=== PATIENT | female | born 1995 ===

== ENCOUNTER 2020-07-15 20:08 | Emergency (ER) | payer MEDICAID, SELFPAY ==
--- NOTE | 2020-07-15 20:24 | ED.URI ---
HPI - URI/Sore Throat General Chief Complaint: General Medical Stated Complaint: Flu like symptoms Time Seen by Provider: 07/15/20 20:24 Source: patient Mode of arrival: ambulatory Limitations: no limitations History of Present Illness HPI Narrative: 25-year-old female with no significant past medical history presents with approximately 2 days of upper respiratory symptoms, cough, sore throat, subjective fevers and chills, and diarrhea. She presents for COVID-19 testing for her children and herself. MD elicited complaint: fever, cough, sore throat and nasal congestion Onset (ago): day(s) (2) Consistency: constant Severity: moderate Description of mucous: clear and watery Able to tolerate fluids by mouth: Yes Exacerbating factors: nothing Relieving factors: nothing Context: sick contacts Associated symptoms: fever and chills Treatments prior to arrival: none Related Data Allergies Allergy/AdvReac Type Severity Reaction Status Date / Time No Known Allergies Allergy Verified 07/15/20 20:43 Review of Systems Review of Systems: Constitutional: positive Fever, positive Chills, positive fatigue, positive Malaise ENT/Mouth: positive sore throat, positive runny nose Eyes: No Discharge Cardiovascular: No Chest Pain, No SOB Respiratory: No Cough, No Sputum, No Wheezing, No Smoke Exposure, No Dyspnea Gastrointestinal: No Nausea, No Vomiting, positive Diarrhea Genitourinary: no irregular bleeding, No Dysuria, No Urinary Frequency, No Hematuria, No Urinary Incontinence, No Urgency, No Flank Pain, Musculoskeletal: positive Myalgia Skin: No rash Neuro: No Headache Yes all other systems are reviewed and are negative PMFSH Past Medical History Attestation statement: The following information was validated with the patient. Source: old records reviewed Medical History (Updated 07/15/20 @ 20:44 by Susie Fischer) Patient denies medical problems Social History Social History Advance Directives: No Advance Directives Information Provided: No Physical Exam Vital Signs: Vital Signs: Last Vital Signs Temp 98.3 F 07/15/20 20:43 Pulse 89 07/15/20 20:43 Resp 18 07/15/20 20:43 BP 119/74 07/15/20 20:43 Pulse Ox 99 07/15/20 20:43 Body Mass Index 37.6 Appearance: Alert. Oriented X3. No acute distress. Eyes: Pupils equal, round and reactive to light. ENT: Pharynx normal. Neck: Normal inspection. Neck supple. CVS: Normal heart rate and rhythm. Pulses normal. Respiratory: No respiratory distress. Breath sounds normal. Abdomen: Soft and nontender. Skin: Skin warm and dry. Normal skin color. Normal skin turgor. Extremities: No lower extremity edema. Neuro: No motor deficit. No sensory deficit. Course Course Course Narrative: 25-year-old female with no significant past medical history presents with 2 days of upper respiratory symptoms consistent with COVID-19. She presents with her twin infants for testing. Patient will be discharged home and will be called with her results. Patient call back at 9:32 p.m. with positive COVID-19 testing results. MDM - URI/Sore Throat Differential Diagnosis Differential diagnosis: Likely upper respiratory infection, viral infection, bronchitis and influenza Medical Records Attestation: I reviewed the patient's medical records. Lab Data Attestation: I reviewed the patient's lab results. Labs: Lab Results 07/15/20 Range/Units 20:49 COVID-19 ([facility]) Positive A (Negative) COVID-19 Clin Com See Note Discharge Plan Discharge Clinical Impression: COVID-19 Patient Disposition: Home, Self-Care Instructions: Upper Respiratory Infection (ED), Viral Syndrome (ED), COVID-19 (Coronavirus Disease 2019) (ED) Additional Instructions: Se le evaluaron para detectar s?ntomas consistentes con la exposici?n positiva a COVID-19 o COVID-19. Por favor, mantenga el aislamiento social seg?n las directrices estatales y federales. Es stewart responsabilidad mantener estas directrices. Los resultados de las pruebas est?n pendientes. Le llamaremos con los resultados. Usted debe tratarse a s? mismo luis si fuera positivo hasta que los resultados de la prueba vuelvan. Shelley por elegir nazario departamento de emergencias para stewart evaluaci?n. Por favor, isamar un seguimiento con el m?dico de atenci?n primaria seg?n sea necesario. Regrese al servicio de emergencias para cualquier s?ntoma nuevo, preocupante o que empeore. You were evaluated for symptoms consistent with COVID-19 and or COVID-19 positive exposure. Please maintain social isolation per State and Federal guidelines. Is your responsibility to maintain these guidelines. Your test results are pending. We will call you with the results. You must treat yourself as if you are positive until your test results come back. Thank you for choosing this emergency department for evaluation. Please follow-up with primary care physician as needed. Return to the emergency department for any new, concerning, or worsening symptoms. Interventions: ED Discharge Assessment Last Done: 07/15/20 21:10 Discharge Date/Time: 07/15/20 21:11
[2020-07-15 20:43] VITALS: BP 119/74; PULSE 89; RESP 18; TEMP 36.8; O2SAT 99; BMI 37.6
[2020-07-15] MEDS: Acetaminophen 325 MG TABLET 650 MG PO (21:06)
[2020-07-15 21:09] LABS: COVID-19 Test Positive (Negative)
== END 2020-07-15 21:11 | disposition home or self-care (01) ==
PROVIDERS: Nurse Practitioner Family; Emergency Provider Internal Medicine
DX: U07.1 COVID-19 (principal)
CPT/HCPCS: 36415; 87635; 99283

== ENCOUNTER 2020-10-17 19:09 | Emergency (ER) | payer MEDICAID, SELFPAY ==
[2020-10-17 19:13] VITALS: BP 135/85; PULSE 102; RESP 18; TEMP 36.6; O2SAT 97; BMI 53.4
--- NOTE | 2020-10-17 20:33 | ED.NAVMDI ---
HPI - Nausea/Vomiting/Diarrhea General Chief complaint: Nausea/Vomiting/Diarrhea Stated complaint: vomiting Time Seen by Provider: 10/17/20 20:02 Source: patient Mode of arrival: ambulatory Limitations: no limitations History of Present Illness HPI Narrative: Patient with no significant past medical history been having diarrhea since last night with nausea diffuse cramping abdominal pain. Patient had 4 loose bowel movements since morning. Also her child is sick with vomiting denies any travel, no fever no chills nobody in the family has COVID Related Data Previous Rx's Medication Instructions Recorded ondansetron 4 mg disintegrating 4 mg PO Q6-8H PRN #12 tab 10/17/20 tablet Allergies Allergy/AdvReac Type Severity Reaction Status Date / Time No Known Allergies Allergy Verified 07/15/20 20:43 Review of Systems Review of Systems: Yes all other systems are reviewed and are negative PMFSH Past Medical History Medical History Patient denies medical problems Social History Social History Advance Directives: No Patient : No Physical Exam Vital Signs: Vital Signs: Last Vital Signs Temp 98.1 F 10/17/20 21:44 Pulse 91 10/17/20 21:44 Resp 18 10/17/20 21:44 BP 93/63 10/17/20 21:44 Pulse Ox 100 10/17/20 21:44 Body Mass Index 53.4 Appearance: Alert. Oriented X3. No acute distress. Eyes: No icterus no pallor ENT: Pharynx normal. Oral Mucosa moist Neck: Normal inspection. Neck supple. CVS: Normal heart rate and rhythm. Pulses normal. Respiratory: No respiratory distress. Equal air entry bilateral, no wheezing/rales/rhonchi Abdomen: Soft and nontender. Bowel sounds are present, no mass palpable, no CVA tenderness Skin: Skin warm and dry. Normal skin color. Normal skin turgor. Extremities: No lower MDM - Nausea/Vomiting/Diarrhea MDM Narrative Medical decision making narrative: Patient with nausea and diarrhea vomited 1 time in the ER started feeling much better after that patient was given Zofran sublingual COVID test was negative patient tolerating p.o. fluids after that will discharge patient home likely viral gastroenteritis Lab Data Labs: Lab Results 10/17/20 Range/Units 21:04 COVID-19 ([facility]) Negative (Negative) COVID-19 Clin Com See Note Discharge Plan Discharge Clinical Impression: Gastroenteritis Patient Disposition: Home, Self-Care Instructions: Gastroenteritis (ED) Additional Instructions: Drink plenty of fluids take medication for nausea/vomiting as prescribed Follow with PCP if not better Prescriptions: New ondansetron 4 mg tablet,disintegrating 4 mg PO Q6-8H PRN (Reason: Nausea And Vomiting) Qty: 12 RF: 0 Interventions: ED Discharge Assessment Last Done: 10/17/20 22:11 Discharge Date/Time: 10/17/20 22:12
[2020-10-17] MEDS: Dicyclomine HCl 10 MG CAPSULE 20 MG PO (21:01)
[2020-10-17] MEDS: Ondansetron ODT 4 MG TAB.RAPDIS TRANSLINGU (21:01)
[2020-10-17 21:31] LABS: COVID-19 Test Negative (Negative)
[2020-10-17 21:44] VITALS: BP 93/63; PULSE 91; RESP 18; TEMP 36.7; O2SAT 100
--- NOTE | 2020-10-17 22:07 | PC.NURSE ---
at arrival to room patient vomited over 500mls. soon after jenaro fell asleep. denies abd pain. others in household are vomiting.
--- NOTE | 2020-10-17 22:09 | PC.NURSE ---
taking po fluids w/o difficulty
== END 2020-10-17 22:12 | disposition home or self-care (01) ==
PROVIDERS: Emergency Provider Internal Medicine
DX: K52.9 Noninfective gastroenteritis and colitis, unspecified (principal); R11.2 Nausea with vomiting, unspecified; Z20.822 Contact with and (suspected) exposure to COVID-19; Z79.899 Other long term (current) drug therapy
CPT/HCPCS: 36415; 87635; 99283

== ENCOUNTER → 2021-02-05 10:09 | Outpatient (BNVA) | payer MEDICAID, SELFPAY | PROVIDERS: PCP General Practice; Referring Provider General Practice; Visit Provider Physician Assistant | DX: Z01.818 Encounter for other preprocedural examination (principal); E66.01 Morbid (severe) obesity due to excess calories; Z68.43 Body mass index [BMI] 50.0-59.9, adult | CPT/HCPCS: 99202 ==

== ENCOUNTER 2021-02-06 16:07 | Outpatient (REF) | payer MEDICAID, SELFPAY ==
[2021-02-07 10:34] LABS: H Pylori Breath Test Negative (Negative)
== END 2021-02-06 16:08 | disposition home or self-care (01) ==
LOC: HO.LNP 16:07
PROVIDERS: Visit Provider Physician Assistant
DX: E66.01 Morbid (severe) obesity due to excess calories (principal)
CPT/HCPCS: 83013

== ENCOUNTER 2021-07-14 15:14 | Emergency (ER) | payer MEDICAID, SELFPAY ==
[2021-07-14 15:20] VITALS: BP 124/84
[2021-07-14 15:22] VITALS: BP 119/79; PULSE 88; RESP 18; TEMP 36.8; O2SAT 96; BMI 52.4
--- NOTE | 2021-07-14 18:09 | ED.NAVMDI ---
HPI - Nausea/Vomiting/Diarrhea General Chief complaint: Nausea/Vomiting/Diarrhea Stated complaint: N/V/D SINCE THIS AM,LOW BP FROM CLINIC PER EMS Time Seen by Provider: 07/14/21 18:09 Source: patient Mode of arrival: ambulatory Limitations: no limitations History of Present Illness HPI Narrative: Patient with multiple complaints for last 3 weeks complains of body aches , cough for last 2 days complaining nausea vomiting and diarrhea omitted to 3 times a day no fever no chills patient does have diffuse abdominal cramping no vaginal discharge Related Data Previous Rx's Medication Instructions Recorded ondansetron 4 mg disintegrating 4 mg PO Q6-8H PRN #12 tab 10/17/20 tablet ondansetron 4 mg disintegrating 4 mg PO Q6-8H PRN #7 tab 07/14/21 tablet Allergies Allergy/AdvReac Type Severity Reaction Status Date / Time No Known Allergies Allergy Verified 07/14/21 15:22 Review of Systems Review of Systems: Yes all other systems are reviewed and are negative PMFSH Past Medical History Medical History Patient denies medical problems Surgical History Hx of section Family History Family History Mother Anxiety Depression Father No problems noted. Brother No problems noted. Brother No problems noted. Brother Schizo affective schizophrenia Daughter No problems noted. Son No problems noted. Social History Social History Alcohol intake: never Patient Tobacco Use Status: Never used Tobacco Advance Directives: No Advance Directives Information Provided: No Patient : No Physical Exam Vital Signs: Vital Signs: Last Vital Signs Temp 98.3 F 07/14/21 21:06 Pulse 58 07/14/21 21:06 Resp 18 07/14/21 15:22 BP 146/66 H 07/14/21 21:06 Pulse Ox 97 07/14/21 21:06 BMI result Body Mass Index 52.4 Appearance: Alert. Oriented X3. No acute distress. Eyes: No pallor or icterus ENT: Pharynx normal. Oral Mucosa moist Neck: Normal inspection. Neck supple. CVS: Normal heart rate and rhythm. Pulses normal. Respiratory: No respiratory distress. Equal air entry bilateral, no wheezing/rales/rhonchi Abdomen: Soft and nontender. Bowel sounds are present, no mass palpable, no CVA tenderness Skin: Skin warm and dry. Normal skin color. Normal skin turgor. Extremities: No lower extremity edema. No calf tenderness Neuro: Oriented X 3. MDM - Nausea/Vomiting/Diarrhea MDM Narrative Medical decision making narrative: Patient is obese with nonspecific complaints with nausea vomiting diarrhea likely viral influenza and COVID negative patient feeling much better after treatment discharge her home Lab Data Attestation: I reviewed the patient's lab results. Result diagrams: 07/14/21 18:56 07/14/21 18:56 Labs: Lab Results 07/14/21 07/14/21 07/14/21 Range/Units 18:56 18:56 19:05 WBC 10.6 (4.8-10.8) X10*3/uL RBC 4.44 (4.20-5.50) X10*6/uL Hgb 12.4 (12.0-16.0) g/dl Hct 38.2 (37.0-47.0) % MCV 86.0 (80.0-98.0) fL MCH 27.9 (27.0-33.0) pg MCHC 32.5 (31.0-35.0) g/dl RDW 14.2 (11.0-16.0) % Plt Count 347 (160-400) X10*3/uL MPV 10.4 (9.4-12.3) fL Immature Gran % (Auto) 0.3 (0.0-0.4) % Neut % (Auto) 76.4 H (45-73) % Lymph % (Auto) 16.1 L (20-40) % Valley % (Auto) 5.6 (2-11) % Eos % (Auto) 1.4 (0-4) % Baso % (Auto) 0.2 (0-2) % Lymph # (Auto) 1.7 (1.2-4.9) X10*3/uL Valley # (Auto) 0.6 (0.1-1.2) X10*3/uL Eos # (Auto) 0.2 (0.0-0.4) X10*3/uL Baso # (Auto) 0.0 (0.0-0.2) X10*3/uL Abs Immat Gran (auto) 0.03 (0.00-0.03) X10*3/uL Absolute Neuts (auto) 8.1 (2.0-8.3) x10*3/uL Absolute Nucleated RBC 0.000 (0.0-0.012) X10*3/uL Nucleated RBC % (auto) 0.0 (0.0-0.2) /100WBC Sodium 137 (135-145) mmol/L Potassium 4.3 (3.3-5.1) mmol/L Chloride 103 (96-108) mmol/L Carbon Dioxide 28 (22-29) mmol/L Anion Gap 10 L (12-20) BUN 6 L (9-16) mg/dL Creatinine 0.86 (0.5-1.4) mg/dL Estim Creat Clear Calc 128.5 Estimated GFR > 60 Random Glucose 90 (60-115) mg/dL Calcium 8.8 (8.4-10.2) mg/dL Total Bilirubin 0.5 (0.0-1.0) mg/dL AST 22 (5-31) U/L ALT 32 H (0-31) U/L Alkaline Phosphatase 168 H (39-117) U/L Total Protein 7.0 (6.5-8.0) g/dL Albumin 3.7 (3.5-5.0) g/dL Lipase 18 (8-78) U/L COVID-19 ([facility]) Negative (Negative) COVID-19 Clin Com See Note Influenza Type A ([facility]) (Negative) Influenza Type B ([facility]) (Negative) Influenza A & B Note 07/14/21 Range/Units 20:41 WBC (4.8-10.8) X10*3/uL RBC (4.20-5.50) X10*6/uL Hgb (12.0-16.0) g/dl Hct (37.0-47.0) % MCV (80.0-98.0) fL MCH (27.0-33.0) pg MCHC (31.0-35.0) g/dl RDW (11.0-16.0) % Plt Count (160-400) X10*3/uL MPV (9.4-12.3) fL Immature Gran % (Auto) (0.0-0.4) % Neut % (Auto) (45-73) % Lymph % (Auto) (20-40) % Valley % (Auto) (2-11) % Eos % (Auto) (0-4) % Baso % (Auto) (0-2) % Lymph # (Auto) (1.2-4.9) X10*3/uL Valley # (Auto) (0.1-1.2) X10*3/uL Eos # (Auto) (0.0-0.4) X10*3/uL Baso # (Auto) (0.0-0.2) X10*3/uL Abs Immat Gran (auto) (0.00-0.03) X10*3/uL Absolute Neuts (auto) (2.0-8.3) x10*3/uL Absolute Nucleated RBC (0.0-0.012) X10*3/uL Nucleated RBC % (auto) (0.0-0.2) /100WBC Sodium (135-145) mmol/L Potassium (3.3-5.1) mmol/L Chloride (96-108) mmol/L Carbon Dioxide (22-29) mmol/L Anion Gap (12-20) BUN (9-16) mg/dL Creatinine (0.5-1.4) mg/dL Estim Creat Clear Calc Estimated GFR Random Glucose (60-115) mg/dL Calcium (8.4-10.2) mg/dL Total Bilirubin (0.0-1.0) mg/dL AST (5-31) U/L ALT (0-31) U/L Alkaline Phosphatase (39-117) U/L Total Protein (6.5-8.0) g/dL Albumin (3.5-5.0) g/dL Lipase (8-78) U/L COVID-19 ([facility]) (Negative) COVID-19 Clin Com Influenza Type A ([facility]) Negative (Negative) Influenza Type B ([facility]) Negative (Negative) Influenza A & B Note See Note Discharge Plan Discharge Clinical Impression: Gastroenteritis Patient Disposition: Home, Self-Care Instructions: Gastroenteritis (ED) Additional Instructions: Drink plenty of fluids Medicine for nausea as advised Follow with PCP Prescriptions: New ondansetron 4 mg tablet,disintegrating 4 mg PO Q6-8H PRN (Reason: nausea and vomiting) Qty: 7 0RF No Action ondansetron 4 mg tablet,disintegrating 4 mg PO Q6-8H PRN (Reason: Nausea And Vomiting) Qty: 12 0RF Interventions: ED Discharge Assessment Last Done: 07/14/21 21:32 Discharge Date/Time: 07/14/21 21:40
[2021-07-14 18:28] VITALS: BP 111/58; PULSE 85; TEMP 36.8; O2SAT 97
[2021-07-14] MEDS: 0.9 % Sodium Chloride 1,000 ML 999 ML IV (18:57)
[2021-07-14 18:59] LABS: MANUAL DIFF FLAG NO
[2021-07-14 19:09] LABS: Basophils Percent Auto 0.2 % (0-2); Eosinophils Absolute Auto 0.2 X10*3/uL (0.0-0.4); Eosinophils Percent Auto 1.4 % (0-4); Hematocrit 38.2 % (37.0-47.0); Hemoglobin 12.4 g/dl (12.0-16.0); Imm Gran Abs Auto 0.03 X10*3/uL (0.00-0.03); Imm Gran Pct Auto 0.3 % (0.0-0.4); Lymphocytes Absolute Auto 1.7 X10*3/uL (1.2-4.9); Lymphocytes Percent Auto 16.1 % (20-40); Mean Corpuscular HGB Conc 32.5 g/dl (31.0-35.0); Mean Corpuscular Hemoglobin 27.9 pg (27.0-33.0); Mean Platelet Volume 10.4 fL (9.4-12.3); Monocytes Absolute Auto 0.6 X10*3/uL (0.1-1.2); Monocytes Percent Auto 5.6 % (2-11); Neutrophils Absolute Auto 8.1 x10*3/uL (2.0-8.3); Neutrophils Percent Auto 76.4 % (45-73); Platelet Count 347 X10*3/uL (160-400); Red Blood Count 4.44 X10*6/uL (4.20-5.50); Red Cell Distribution Width 14.2 % (11.0-16.0); White Blood Count 10.6 X10*3/uL (4.8-10.8)
[2021-07-14 19:15] LABS: Alanine Aminotransferase 32 U/L (0-31); Albumin Level 3.7 g/dL (3.5-5.0); Alkaline Phosphatase 168 U/L (39-117); Anion Gap 10 (12-20); Aspartate Amino Transferase 22 U/L (5-31); Bilirubin Total 0.5 mg/dL (0.0-1.0); Blood Urea Nitrogen 6 mg/dL (9-16); Calcium 8.8 mg/dL (8.4-10.2); Carbon Dioxide 28 mmol/L (22-29); Chloride 103 mmol/L (96-108); Creatinine Clr Calc Pharmacy 128.5; Estimated Glomerular Filt Rate > 60; Glucose Random 90 mg/dL (60-115); Lipase 18 U/L (8-78); Potassium 4.3 mmol/L (3.3-5.1); Sodium 137 mmol/L (135-145)
[2021-07-14 19:33] LABS: COVID-19 Test Negative (Negative); IDNOW Serial# 16C4AD1C
[2021-07-14] MEDS: Ketorolac Tromethamine 30 MG/ML VIAL IVPUSH (20:20)
[2021-07-14 21:01] VITALS: BP 131/70; PULSE 80; TEMP 36.8; O2SAT 97
[2021-07-14 21:03] LABS: Influenza A Negative (Negative); Influenza B2 Negative (Negative)
[2021-07-14 21:06] VITALS: BP 146/66; PULSE 58; TEMP 36.8; O2SAT 97
== END 2021-07-14 21:40 | disposition home or self-care (01) ==
PROVIDERS: Emergency Provider Internal Medicine
DX: K52.9 Noninfective gastroenteritis and colitis, unspecified (principal); R11.2 Nausea with vomiting, unspecified; M79.10 Myalgia, unspecified site; R05.9 Cough, unspecified; Z20.822 Contact with and (suspected) exposure to COVID-19; Z79.899 Other long term (current) drug therapy
CPT/HCPCS: 80053; 83690; 85025; 87502; 87635; 96361; 96374; 99284; J1885

== ENCOUNTER 2022-07-18 18:06 | Emergency (ER) | payer MEDICAID, SELFPAY ==
[2022-07-18 18:12] VITALS: BP 123/77; PULSE 93; RESP 18; TEMP 36.8; O2SAT 98; BMI 49.7
--- NOTE | 2022-07-18 18:13 | ED_ITS ---
HPI - General Adult General Chief complaint: General Medical <DANGELO Riddle - Last Filed: 07/19/22 09:46> Stated complaint: , no baby movement, coughing <DANGELO Riddle - Last Filed: 07/19/22 09:46> Time Seen by Provider: 07/18/22 18:59 <DANGELO Riddle - Last Filed: 07/19/22 09:46> Related Data Home medications: Previous Rx's Medication Instructions Recorded ondansetron 4 mg disintegrating 4 mg PO Q6-8H PRN Nausea And 10/17/20 tablet Vomiting #12 tabs ondansetron 4 mg disintegrating 4 mg PO Q6-8H PRN nausea and 07/14/21 tablet vomiting #7 tabs amoxicillin 500 mg tablet 500 mg PO BID #14 tabs 07/18/22 <DANGELO Riddle - Last Filed: 07/19/22 09:46> Allergies/adverse reactions: Allergies Allergy/AdvReac Type Severity Reaction Status Date / Time No Known Allergies Allergy Verified 07/14/21 15:22 <DANGELO Riddle - Last Filed: 07/19/22 09:46> [facility] Past Medical History Medical History: Medical History Patient denies medical problems <DANGELO Riddle - Last Filed: 07/19/22 09:46> Surgical History: Surgical History Hx of section <DANGELO Riddle - Last Filed: 07/19/22 09:46> Family History Family History: Family History Mother Anxiety Depression Father No problems noted. Brother No problems noted. Brother No problems noted. Brother Schizo affective schizophrenia Daughter No problems noted. Son No problems noted. <DANGELO Riddle - Last Filed: 07/19/22 09:46> Social History Social History: Social History Alcohol intake: never Patient Tobacco Use Status: Never used Tobacco Smoked in Last 30 Days: No Use of substances other than those prescribed or required for medical reasons: No Advance Directives: No Advance Directives Information Provided: Yes Patient : Yes <DANGELO Riddle - Last Filed: 07/19/22 09:46> Physical Exam ED Vital Signs: Vital Signs - 24 hr 07/18/22 18:12 07/18/22 18:59 Temperature 98.3 F Pulse Rate 93 71 Respiratory Rate 18 Blood Pressure 123/77 112/64 Pulse Oximetry 98 Oxygen Delivery Method Room Air BMI result Body Mass Index 49.7 <DANGELO Riddle - Last Filed: 07/19/22 09:46> Vital Signs - 24 hr 07/18/22 18:12 07/18/22 18:59 Temperature 98.3 F Pulse Rate 93 71 Respiratory Rate 18 Blood Pressure 123/77 112/64 Pulse Oximetry 98 Oxygen Delivery Method Room Air BMI result Body Mass Index 49.7 <RUSH Hull-BC - Last Filed: 07/18/22 19:44> Course Course Course Narrative: This is a [id number]-[id number]-female, who is 32 weeks , who presents to the emergency department with complaints of cough, sore throat, fevers, and decreased movement. Denies any suprapubic pain, vaginal bleeding or discharge. She is followed by Kana Brewsters, did not call as she has been busy with her daughter who is also sick with URI sxs and is also being seen here at the ER today. VSS. Plan: Viral swab, strep test ordered. <DANGELO Riddle - Last Filed: 07/19/22 09:46> Reevaluation(s) Reevaluation #1: FHR 141, bedside ultrasound done, baby movement seen heart rate measured and seen. Patient does not have any vaginal discharge, no abdominal pain or discomfort, no cramping. Patient will be sent home on antibiotics for strep. Negative flu or COVID. Patient is hemodynamically stable, vital signs stable. Patient will call Kana jimenez [facility] on Wednesday. Patient was encouraged to return if she will have any vaginal discharge. <RUSH Hull-BC - Last Filed: 07/18/22 19:44> Medications Administered Discontinued Medications Generic Name Dose Route Start Last Admin Trade Name Freq PRN Reason Stop Dose Admin Amoxicillin 500 mg 07/18/22 19:45 07/18/22 19:59 Amoxicillin 500 Mg Capsule PO 07/18/22 19:46 500 mg ONCE ONE Administration <DANGELO Riddle - Last Filed: 07/19/22 09:46> Medications Administered Discontinued Medications Generic Name Dose Route Start Last Admin Trade Name Jose PRN Reason Stop Dose Admin Amoxicillin 500 mg 07/18/22 19:45 07/18/22 19:59 Amoxicillin 500 Mg Capsule PO 07/18/22 19:46 500 mg ONCE ONE Administration <RUSH Hull-RAGHAVENDRA - Last Filed: 07/18/22 19:44> Medical Decision Making Medical Decision Making MDM Narrative: Triage note This is a 8-[id number]-female, who is 32 weeks , who presents to the emergency department with complaints of cough, sore throat, fevers, and decreased movement. Denies any suprapubic pain, vaginal bleeding or discharge. She is followed by Kana Brewsters, did not call as she has been busy with her daughter who is also sick with URI sxs and is also being seen here at the ER today. VSS. Plan: Viral swab, strep test ordered. FHR 141, bedside ultrasound done, baby movement seen heart rate measured and seen. Patient does not have any vaginal discharge, no abdominal pain or discomfort, no cramping. Patient will be sent home on antibiotics for strep. Negative flu or COVID. Patient is hemodynamically stable, vital signs stable. Patient will call Kana jimenez [facility] on Wednesday. Patient was encouraged to return if she will have any vaginal discharge. <RUSH Hull-RAGHAVENDRA - Last Filed: 07/18/22 19:44> Lab Data Labs: Lab Results 07/18/22 07/18/22 Range/Units 18:26 18:42 Influenza Type A (PCR) NEGATIVE (Negative) Influenza Type B (PCR) NEGATIVE (Negative) RSV RNA Qual (PCR) NEGATIVE (Negative) SARS-CoV-2 RNA (RT-PCR) NEGATIVE (Negative) S. pyogenes GrpA KUNAL Positive A (Negative) <DANGELO Riddle - Last Filed: 07/19/22 09:46> Lab Results 07/18/22 07/18/22 Range/Units 18:26 18:42 Influenza Type A (PCR) NEGATIVE (Negative) Influenza Type B (PCR) NEGATIVE (Negative) RSV RNA Qual (PCR) NEGATIVE (Negative) SARS-CoV-2 RNA (RT-PCR) NEGATIVE (Negative) S. pyogenes GrpA KUNAL Positive A (Negative) <Berenice Billings BRUSH WASHER-BC - Last Filed: 07/18/22 19:44> Discharge Plan Discharge Clinical Impression: Strep throat, <DANGELO Riddle - Last Filed: 07/19/22 09:46> Patient Disposition: Home, Self-Care <DANGELO Riddle - Last Filed: 07/19/22 09:46> Instructions: (ED), Strep Throat (ED) <DANGELO Riddle - Last Filed: 07/19/22 09:46> Additional Instructions: You were seen here today for cold-like symptoms, sore throat. You reported that you did not feel your baby move much today. You have strep throat and you received 1st dose of antibiotics in the ER. Please make sure you finish all of the antibiotics. Bedside ultrasound was performed and your baby has been moving and has strong heart rate. If you were have symptoms of abdominal cramping, discomfort or if you have any vaginal discharge please make sure to return to emergency department. Please follow-up with your OBGYN provider next week <DANGELO Riddle - Last Filed: 07/19/22 09:46> Prescriptions: New amoxicillin 500 mg tablet 500 mg PO BID Qty: 14 0RF No Action ondansetron 4 mg tablet,disintegrating 4 mg PO Q6-8H PRN (Reason: Nausea And Vomiting) Qty: 12 0RF ondansetron 4 mg tablet,disintegrating 4 mg PO Q6-8H PRN (Reason: nausea and vomiting) Qty: 7 0RF <DANGELO Riddle - Last Filed: 07/19/22 09:46> Interventions: ED Discharge Assessment Last Done: 07/18/22 20:20 <DANGELO Riddle Last Filed: 07/19/22 09:46> Discharge Date/Time: 07/18/22 20:15 <DANGELO Riddle Last Filed: 07/19/22 09:46>
[2022-07-18 18:59] VITALS: BP 112/64; PULSE 71
[2022-07-18 19:02] LABS: IDNOW Serial# 08D9AD1C; Strep A Nucleic Acid Positive (Negative)
--- NOTE | 2022-07-18 19:17 | PC.NURSE ---
assumed care of pt no apparent distress aox4 resting quietly young daughter at bedside
[2022-07-18 19:25] LABS: Influenza A PCR NEGATIVE (Negative); Influenza B PCR NEGATIVE (Negative); Resp Syncy Virus RNA Qual PCR NEGATIVE (Negative); SARS COV2 PCR INHOUSE NEGATIVE (Negative)
--- NOTE | 2022-07-18 19:34 | PC.NURSE ---
ultrasound done by providers movemet noted FHR 149
[2022-07-18] MEDS: Amoxicillin 500 MG CAPSULE PO (19:59)
--- NOTE | 2022-07-18 20:20 | PC.NURSE ---
Discharge instructions given and explained to pt no apparent distress aox4 ambulates safely/independently
== END 2022-07-18 20:15 | disposition home or self-care (01) ==
PROVIDERS: Physician Assistant Medical; Emergency Provider Internal Medicine
DX: O99.513 Diseases of the respiratory system complicating pregnancy, third trimester (principal); J02.0 Streptococcal pharyngitis; Z3A.32 32 weeks gestation of pregnancy
CPT/HCPCS: 0241U; 87651; 99284

== ENCOUNTER 2022-07-28 01:39 | Emergency (ER) | payer MEDICAID, SELFPAY ==
[2022-07-28 01:42] VITALS: BP 111/69; PULSE 84; RESP 18; TEMP 36.6; O2SAT 98; BMI 27.4
== END 2022-07-28 03:54 | disposition left against medical advice (07) ==
PROVIDERS: Emergency Provider Emergency Medicine; PCP Registered Nurse
DX: O21.2 Late vomiting of pregnancy (principal); H11.31 Conjunctival hemorrhage, right eye; Z3A.34 34 weeks gestation of pregnancy
CPT/HCPCS: 99282

== ENCOUNTER 2022-12-08 09:40 | Emergency (ER) | payer MEDICAID, SELFPAY ==
[2022-12-08 09:56] VITALS: BP 115/68; PULSE 76; RESP 18; TEMP 37.3; O2SAT 98; BMI 48.5
[2022-12-08 10:31] LABS: MANUAL DIFF FLAG NO
[2022-12-08 10:33] LABS: Basophils Percent Auto 0.3 % (0-2); Eosinophils Absolute Auto 0.1 X10*3/uL (0.0-0.4); Eosinophils Percent Auto 1.4 % (0-4); Hematocrit 35.1 % (37.0-47.0); Hemoglobin 11.6 g/dl (12.0-16.0); Imm Gran Abs Auto 0.03 X10*3/uL (0.00-0.03); Imm Gran Pct Auto 0.3 % (0.0-0.4); Lymphocytes Absolute Auto 1.8 X10*3/uL (1.2-4.9); Lymphocytes Percent Auto 19.4 % (20-40); Mean Corpuscular Hemoglobin 28.6 pg (27.0-33.0); Mean Corpuscular Volume 86.7 fL (80.0-98.0); Mean Platelet Volume 10.8 fL (9.4-12.3); Monocytes Absolute Auto 0.7 X10*3/uL (0.1-1.2); Monocytes Percent Auto 7.7 % (2-11); Neutrophils Absolute Auto 6.5 x10*3/uL (2.0-8.3); Neutrophils Percent Auto 70.9 % (45-73); Platelet Count 311 X10*3/uL (160-400); Red Blood Count 4.05 X10*6/uL (4.20-5.50); Red Cell Distribution Width 13.3 % (11.0-16.0); White Blood Count 9.2 X10*3/uL (4.8-10.8)
[2022-12-08 10:48] LABS: Anion Gap 9 (12-20); Blood Urea Nitrogen 9 mg/dL (9-16); Calcium 9.1 mg/dL (8.4-10.2); Carbon Dioxide 24 mmol/L (22-29); Chloride 110 mmol/L (96-108); Creatinine Clr Calc Pharmacy 125.6; Estimated Glomerular Filt Rate > 60; Glucose Random 118 mg/dL (60-115); Potassium 4.5 mmol/L (3.3-5.1); Sodium 138 mmol/L (135-145)
--- NOTE | 2022-12-08 13:07 | ED.GENADULT ---
HPI - General Adult General Chief complaint: General Medical Stated complaint: Diarrhea Vertigo Time Seen by Provider: 12/08/22 13:01 Source: patient, RN notes reviewed and old records reviewed Mode of arrival: ambulatory History of Present Illness HPI narrative: 27-year-old female with past medical history of obesity presenting to the ED complaining of headache, fatigue, nasal congestion/rhinorrhea, sore throat, myalgias, and watery nonbloody diarrhea x6 episodes daily x 3 days. denies fever/chills, ear pain, recent travel, suspicious food intake, sick contacts, abdominal pain, nausea/ vomiting, melena, dysuria/ hematuria, flank pain Onset (ago): day(s) Related Data Previous Rx's Medication Instructions Recorded ondansetron 4 mg disintegrating 4 mg PO Q6-8H PRN Nausea And 10/17/20 tablet Vomiting #12 tabs ondansetron 4 mg disintegrating 4 mg PO Q6-8H PRN nausea and 07/14/21 tablet vomiting #7 tabs amoxicillin 500 mg tablet 500 mg PO BID #14 tabs 07/18/22 Allergies Allergy/AdvReac Type Severity Reaction Status Date / Time No Known Allergies Allergy Verified 07/14/21 15:22 Review of Systems Review of Systems: Constitutional: No Fever, No Chills, + Fatigue, + Malaise ENT/Mouth: No Hearing loss, No Ear Pain, +Nasal Congestion, No Sinus Pain, No Hoarseness, +sore throat, + Rhinorrhea, No Swallowing Difficulty Eyes: No Eye Pain, No Swelling, No Redness Cardiovascular: No Chest Pain, No SOB, No Edema, No Palpitations Respiratory: No Cough, No Sputum,No Dyspnea Gastrointestinal: No Nausea, No Vomiting, +Diarrhea, No Constipation, No Abdominal pain Genitourinary: No Dysuria, No Urinary Frequency, No Hematuria, No Flank Pain, No Urinary Flow Changes Musculoskeletal: No joint pain, No Myalgias, No Joint Swelling Skin: No Skin Lesions, No rash Neuro: +Gen Weakness, No Dizziness, +Headache Yes all other systems are reviewed and are negative Constitutional: Constitutional: Reports as per [facility] Past Medical History Attestation statement: The following information was validated with the patient. Source: old records reviewed Medical History Patient denies medical problems Surgical History Hx of section Family History Family History Mother Anxiety Depression Father No problems noted. Brother No problems noted. Brother No problems noted. Brother Schizo affective schizophrenia Daughter No problems noted. Son No problems noted. Social History Social History Alcohol intake: never Patient Tobacco Use Status: Never used Tobacco Advance Directives: No Advance Directives Information Provided: No Physical Exam ED Vital Signs: Vital Signs - 24 hr 12/08/22 09:56 Temperature 99.2 F Pulse Rate 76 Respiratory Rate 18 Blood Pressure 115/68 Pulse Oximetry 98 Oxygen Delivery Method Room Air BMI result Body Mass Index 48.5 Const General: cooperative, healthy appearing and no acute distress Orientation/consciousness: patient oriented x3 Limitations: no limitations HENMT Head: Yes normal to inspection and Yes atraumatic Ears: hearing grossly normal bilaterally, external ears normal, TM's normal bilaterally and mastoids normal General nose exam: Normal external nose present Face and sinus: Yes normal facial exam Mouth: Normal oral and palatal mucosa present Throat: Yes posterior oropharynx normal, Yes tonsils normal, Yes uvula midline, No peritonsillar mass, No uvula laterally displaced and No uvular edema Eyes General: appearance normal, both eyes and all related structures EOM: EOMs intact bilaterally Neck Neck: Yes normal visual inspection and Yes no meningeal signs Resp Effort & Inspection: normal respiratory effort and no respiratory distress Auscultation: clear to auscultation bilaterally and no wheezes Cardio Rate: regular rate Heart sounds: S1 normal heart sound present and S2 normal heart sound present GI Inspection: Yes normal to inspection Palpation (GI): Soft to palpation, nontender, no guarding and not rigid General: Yes no CVA tenderness Back/Spine/Pelvis Back: no CVA tenderness Skin Rashes: no rashes Wounds: no wounds Neuro General: patient oriented x3, tone normal and no meningeal signs Cranial nerves: Yes CN's II-XII intact bilaterally Gait exam (Neuro): Normal gait present Extrem General: Yes normal to inspection Course Course Course Narrative: -1408-- labs unremarkable/reassuring. UA contaminated > will wait on culture prior to initiating antibiotics. negative - COVID-19 and rapid strep negative Results discussed with patient including worrisome signs and symptoms and strict return precautions, and when to return to the emergency department. They verbalized understanding and feel safe for discharge at this time. Medical Decision Making Medical Decision Making [facility] Narrative: 27-year-old female with past medical history of obesity presenting to the ED complaining of headache, fatigue, nasal congestion/rhinorrhea, sore throat, myalgias, and watery nonbloody diarrhea x6 episodes daily x 3 days. On exam VSS, NAD, nontoxic, abdomen soft nontender, no CVAT, lungs CTA. Concern for viral illness vs gastroenteritis vs dehydration/metabolic vs pharyngitis. C.Diff On differential however lower. Unlikely appendicitis/ diverticulitis/colitis or SENIOR LINUX SYSTEMS ADMINISTRATOR/retropharyngeal abscess. Plan: Labs, UA, COVID-19 testing, rapid strep, p.o. challenge. Discussed stool studies however patient states she will not be able to provide sample Please refer to course for remaining clinical decision making, interpretation of labs/imaging results, and discussions with consultants and/or family members. Differential Diagnosis Differential Diagnoses: The differential diagnosis associated with the presentation includes As above Admission/Observation Consideration of admission/observation: Escalation of care including admission/observation considered Lab Data [facility] Lab Attestation statement: I reviewed the patient's lab results. 12/08/22 10:28 12/08/22 10:28 Labs: Lab Results 12/08/22 12/08/22 Range/Units 10:28 13:20 WBC 9.2 (4.8-10.8) X10*3/uL RBC 4.05 L (4.20-5.50) X10*6/uL Hgb 11.6 L (12.0-16.0) g/dl Hct 35.1 L (37.0-47.0) % MCV 86.7 (80.0-98.0) fL MCH 28.6 (27.0-33.0) pg MCHC 33.0 (31.0-35.0) g/dl RDW 13.3 (11.0-16.0) % Plt Count 311 (160-400) X10*3/uL MPV 10.8 (9.4-12.3) fL Immature Gran % (Auto) 0.3 (0.0-0.4) % Neut % (Auto) 70.9 (45-73) % Lymph % (Auto) 19.4 L (20-40) % Dougherty % (Auto) 7.7 (2-11) % Eos % (Auto) 1.4 (0-4) % Baso % (Auto) 0.3 (0-2) % Lymph # (Auto) 1.8 (1.2-4.9) X10*3/uL Dougherty # (Auto) 0.7 (0.1-1.2) X10*3/uL Eos # (Auto) 0.1 (0.0-0.4) X10*3/uL Baso # (Auto) 0.0 (0.0-0.2) X10*3/uL Abs Immat Gran (auto) 0.03 (0.00-0.03) X10*3/uL Absolute Neuts (auto) 6.5 (2.0-8.3) x10*3/uL Absolute Nucleated RBC 0.000 (0.0-0.012) X10*3/uL Nucleated RBC % (auto) 0.0 (0.0-0.2) /100WBC Sodium 138 (135-145) mmol/L Potassium 4.5 (3.3-5.1) mmol/L Chloride 110 H (96-108) mmol/L Carbon Dioxide 24 (22-29) mmol/L Anion Gap 9 L (12-20) BUN 9 (9-16) mg/dL Creatinine 0.83 (0.5-1.4) mg/dL Estim Creat Clear Calc 125.6 Estimated GFR > 60 Random Glucose 118 H (60-115) mg/dL Calcium 9.1 (8.4-10.2) mg/dL Magnesium 1.8 (1.6-2.6) mg/dL Total Bilirubin 0.2 (0.0-1.0) mg/dL Direct Bilirubin < 0.2 (0.0-0.5) mg/dL AST 14 (5-31) U/L ALT 14 (0-31) U/L Alkaline Phosphatase 164 H (39-117) U/L Total Protein 7.1 (6.5-8.0) g/dL Albumin 3.8 (3.5-5.0) g/dL Lipase 27 (8-78) U/L Urine Color Yellow Urine Appearance Cloudy Urine pH 6.5 (5.0-9.0) Ur Specific [place] 1.020 (1.005-1.025) Urine Protein Negative (Neg-Trace) mg/dL Urine Glucose (UA) Negative (Negative) mg/dL Urine Ketones Negative (Negative) mg/dL Urine Blood Negative (Negative) Urine Nitrite Negative (Negative) Ur Leukocyte Esterase Moderate (2+) H (Negative) Urine RBC 0-2 (0-2) /HPF Urine WBC 11-20 H (0-5) /HPF Ur Squamous Epith Cells >20 (0-2) /HPF Urine Bacteria Trace (None Seen) Hyaline Casts 0-2 (0-2) /LPF Urine Test NEGATIVE (NEGATIVE) COVID-19 (ANTONINO) Negative (Negative) COVID-19 Clin Com See Note S. pyogenes GrpA KUNAL Negative (Negative) Radiology Impression Discussion of test interpretation with radiology: I have reviewed the radiologist's reading. External Record Review External record reviewed: Inpatient record, Office record, Outpatient record, Prior outpatient labs, Prior outpatient radiology, Primary care record and Outside ED record Tests considered The following testing was considered but not selected: As above Prescription Management I considered prescription management with: Pain Medication, Antiviral and Antibiotic Discharge Plan Discharge Clinical Impression: Upper respiratory infection, Diarrhea Patient Disposition: Home, Self-Care Instructions: Upper Respiratory Infection (DC), Acute Diarrhea (ED) Additional Instructions: you likely have a virus Your urine is contaminated, we will wait for the culture, if this is positive we will call you Please close follow-up with her doctor. If he can provide a stool sample for doctor to send for studies this would be helpful Make sure your in taking plenty of fluids Rest If symptoms persist or worsen you develop blood in her stool, black stool, you are unable to eat or drink return to the ED Prescriptions: No Action ondansetron 4 mg tablet,disintegrating 4 mg PO Q6-8H PRN (Reason: Nausea And Vomiting) Qty: 12 0RF ondansetron 4 mg tablet,disintegrating 4 mg PO Q6-8H PRN (Reason: nausea and vomiting) Qty: 7 0RF amoxicillin 500 mg tablet 500 mg PO BID Qty: 14 0RF Referrals: Carmelina Dixon, [facility] RN [Primary Care Provider] - 5 days Stand Alone Forms: Work/School Release Interventions: ED Discharge Assessment Last Done: 12/08/22 14:20 Discharge Date/Time: 12/08/22 14:20
[2022-12-08 13:38] LABS: Appearance Urine Cloudy; Color Urine Yellow; Glucose Urine UA Negative (Negative); Leukocyte Esterase Urine Moderate (2+) (Negative); Nitrite Urine Negative (Negative); PH 6.5 (5.0-9.0); UMIC TRIGGER UACC YES; Urine Blood Negative (Negative); Urine Ketones Negative (Negative); Urine Protein Negative (Neg-Trace)
[2022-12-08 13:39] LABS: UPreg QC Valid YES; Urine Pregnancy NEGATIVE (NEGATIVE)
[2022-12-08 13:45] LABS: Alanine Aminotransferase 14 U/L (0-31); Albumin Level 3.8 g/dL (3.5-5.0); Alkaline Phosphatase 164 U/L (39-117); Aspartate Amino Transferase 14 U/L (5-31); Bilirubin Direct < 0.2 mg/dL (0.0-0.5); Bilirubin Total 0.2 mg/dL (0.0-1.0); Lipase 27 U/L (8-78); Magnesium 1.8 mg/dL (1.6-2.6); Total Protein 7.1 g/dL (6.5-8.0)
[2022-12-08 13:47] LABS: Bacteria Urine Trace (None Seen); Hyaline Casts Urine 0-2 /LPF (0-2); RBC Urine 0-2 /HPF (0-2); Squamous Epithelial Cell Urine >20 /HPF (0-2); UACC Culture Trigger YES
[2022-12-08 14:00] LABS: COVID-19 Test Negative (Negative); IDNOW Serial# 08D9AD1C; IDNOW Serial# BCCEAD1C
[2022-12-08 14:01] LABS: Strep A Nucleic Acid Negative (Negative)
== END 2022-12-08 14:20 | disposition home or self-care (01) ==
PROVIDERS: Physician Assistant; Emergency Provider Emergency Medicine; PCP Registered Nurse
DX: J06.9 Acute upper respiratory infection, unspecified (principal); R19.7 Diarrhea, unspecified; Z20.822 Contact with and (suspected) exposure to COVID-19; J02.9 Acute pharyngitis, unspecified
CPT/HCPCS: 36415; 80048; 80076; 81001; 81025; 83690; 83735; 85025; 87086; 87147; 87635; 87651; 99282; 99283

== ENCOUNTER 2022-12-29 10:22 | Outpatient (REF) | payer MEDICAID, SELFPAY ==
[2022-12-31 22:39] LABS: TS Negative Control Passed; TS Panel A 0; TS Panel B 0; TS Positive Control Passed; TSpotTB Negative (Negative)
== END 2022-12-29 10:23 | disposition home or self-care (01) ==
LOC: HO.HHCL 10:22
PROVIDERS: Visit Provider Internal Medicine
DX: Z00.00 Encounter for general adult medical examination without abnormal findings (principal); Z11.1 Encounter for screening for respiratory tuberculosis
CPT/HCPCS: 36415; 86481; 86704; 86706; 86709; 86735; 86762; 86765; 86803; 87340

== ENCOUNTER 2023-06-02 21:27 | Outpatient (REF) | payer MEDICAID, SELFPAY ==
[2023-06-04 19:53] LABS: C. trachomatis RNA TMA NOT DETECTED (NOT DETECTED); N. gonorrhoeae RNA TMA NOT DETECTED (NOT DETECTED)
== END 2023-06-02 21:28 | disposition home or self-care (01) ==
LOC: HO.HHCLNP 21:27
PROVIDERS: PCP Nurse Practitioner; Visit Provider Nurse Practitioner
DX: N93.9 Abnormal uterine and vaginal bleeding, unspecified (principal)
CPT/HCPCS: 36415; 81513; 87491; 87591

== ENCOUNTER 2023-06-18 13:35 | Outpatient (REF) | payer MEDICAID, SELFPAY ==
--- NOTE | ~2023-06-18 | US_ITS ---
EXAMINATION: US PELVIS CLINICAL INFORMATION: Abnormal uterine bleeding, last menstrual period 06/06/2023 right pelvic pain. COMPARISON: None available. TECHNIQUE: Ultrasound of the pelvis is performed using both transabdominal and transvaginal transducers along with Doppler. Transvaginal imaging is performed due to inadequate visualization transabdominally. Limited visualization due to bowel gas and body habitus. FINDINGS: The uterus measures 6.9 x 3.5 x 5.0 cm and is retroverted. No discrete fibroids are appreciated. Endometrial thickness is 9 mm. Small amount of free fluid in the pelvis. Right ovary measures 1.4 x 1.2 x 0.9 cm, volume 0.8 mL. Right ovary is grossly unremarkable. Left ovary measures 3.6 x 2.6 x 2.5 cm, volume 12.3 mL. Left ovarian simple cyst measures less than 2 cm, likely physiologic, follicle. US/US pelvic and transvaginal IMPRESSION: 1. Endometrial thickness is 9 mm. 2. Small amount of free fluid in the pelvis. 3. Left ovarian simple cyst measures less than 2 cm, likely physiologic, follicle.
== END 2023-06-18 13:36 | disposition home or self-care (01) ==
LOC: HO.US 13:35
PROVIDERS: PCP Nurse Practitioner; Visit Provider Nurse Practitioner
DX: N93.9 Abnormal uterine and vaginal bleeding, unspecified (principal)
CPT/HCPCS: 76830; 76856

== ENCOUNTER 2023-06-28 08:49 | Outpatient (REF) | payer MEDICAID, SELFPAY ==
[2023-06-28 12:05] LABS: MANUAL DIFF FLAG NO
[2023-06-28 12:19] LABS: Basophils Absolute Auto 0.1 X10*3/uL (0.0-0.2); Basophils Percent Auto 0.5 % (0-2); Eosinophils Absolute Auto 0.3 X10*3/uL (0.0-0.4); Eosinophils Percent Auto 2.4 % (0-4); Hematocrit 36.9 % (37.0-47.0); Hemoglobin 11.7 g/dl (12.0-16.0); Imm Gran Abs Auto 0.04 X10*3/uL (0.00-0.03); Imm Gran Pct Auto 0.4 % (0.0-0.4); Lymphocytes Percent Auto 37.2 % (20-40); Mean Corpuscular HGB Conc 31.7 g/dl (31.0-35.0); Mean Corpuscular Hemoglobin 26.4 pg (27.0-33.0); Mean Corpuscular Volume 83.3 fL (80.0-98.0); Monocytes Absolute Auto 0.7 X10*3/uL (0.1-1.2); Monocytes Percent Auto 6.8 % (2-11); Neutrophils Absolute Auto 5.7 x10*3/uL (2.0-8.3); Neutrophils Percent Auto 52.7 % (45-73); Platelet Count 379 X10*3/uL (160-400); Red Blood Count 4.43 X10*6/uL (4.20-5.50); Red Cell Distribution Width 14.4 % (11.0-16.0); White Blood Count 10.8 X10*3/uL (4.8-10.8)
[2023-06-28 12:26] LABS: Estimated Average Glucose 114 mg/dL; Hemoglobin A1c % 5.6 % (<6.0)
[2023-06-28 12:38] LABS: Alanine Aminotransferase 17 U/L (0-31); Albumin Level 3.8 g/dL (3.5-5.0); Alkaline Phosphatase 167 U/L (39-117); Anion Gap 9 (12-20); Aspartate Amino Transferase 17 U/L (5-31); Bilirubin Total 0.2 mg/dL (0.0-1.0); Blood Urea Nitrogen 13 mg/dL (9-16); Calcium 9.1 mg/dL (8.4-10.2); Carbon Dioxide 25 mmol/L (22-29); Chloride 109 mmol/L (96-108); Cholesterol 146 mg/dL (<200); Estimated Glomerular Filt Rate > 60; Glucose Random 104 mg/dL (60-115); HDL Cholesterol 39 mg/dL (>40); LDL Cholesterol Calculated 78 mg/dL (<100); Potassium 4.4 mmol/L (3.3-5.1); Sodium 139 mmol/L (135-145); Total Protein 7.3 g/dL (6.5-8.0); Triglycerides 146 mg/dL (<150)
[2023-06-28 12:55] LABS: TSH reflex Free T4 1.18 uIU/mL (0.32-4.0)
[2023-06-28 12:58] LABS: HBS Num1 0.75 mIU/mL (0-7.99); HBc Num1 0.08 S/CO (0.00-0.79); HBsAGNum1 0.38 S/CO (0.00-0.99); HIV AB/AG Nonreactive (Nonreactive); HIV Num 1 0.07 S/CO (0.00-0.99); Hepatitis B Core Antibody Nonreactive (Nonreactive); Hepatitis B Surface Antigen Negative (Negative); ~HepC Num1 0.28 S/CO (0.00-0.79); ~Hepatitis B Surface Antibody NONREACTIVE (Nonreactive); ~Hepatitis C Antibody Nonreactive (Nonreactive)
[2023-06-29 12:08] LABS: RPR Rapid Plasma Reagin NON-REACTIVE (NON-REACTIVE)
== END 2023-06-28 08:50 | disposition home or self-care (01) ==
LOC: HO.HHCL 08:49
PROVIDERS: Visit Provider Nurse Practitioner
DX: N93.9 Abnormal uterine and vaginal bleeding, unspecified (principal); Z11.59 Encounter for screening for other viral diseases; Z11.3 Encounter for screening for infections with a predominantly sexual mode of transmission; E66.01 Morbid (severe) obesity due to excess calories; Z68.42 Body mass index [BMI] 45.0-49.9, adult
CPT/HCPCS: 36415; 80053; 80061; 83036; 84443; 85025; 86592; 86704; 86706; 86803; 87340; 87389

== ENCOUNTER 2023-08-20 11:53 | Outpatient (REF) | payer MEDICAID, SELFPAY ==
[2023-08-20 13:32] LABS: MANUAL DIFF FLAG NO
[2023-08-20 13:51] LABS: Basophils Absolute Auto 0.1 X10*3/uL (0.0-0.2); Basophils Percent Auto 0.6 % (0-2); Eosinophils Absolute Auto 0.2 X10*3/uL (0.0-0.4); Eosinophils Percent Auto 1.6 % (0-4); Hematocrit 37.4 % (37.0-47.0); Hemoglobin 11.9 g/dl (12.0-16.0); Imm Gran Abs Auto 0.04 X10*3/uL (0.00-0.03); Imm Gran Pct Auto 0.4 % (0.0-0.4); Immature Retic Fraction 23.5 % (3.0-15.9); Lymphocytes Absolute Auto 2.9 X10*3/uL (1.2-4.9); Lymphocytes Percent Auto 27.5 % (20-40); Mean Corpuscular HGB Conc 31.8 g/dl (31.0-35.0); Mean Corpuscular Hemoglobin 25.7 pg (27.0-33.0); Mean Corpuscular Volume 80.8 fL (80.0-98.0); Mean Platelet Volume 10.7 fL (9.4-12.3); Monocytes Absolute Auto 0.6 X10*3/uL (0.1-1.2); Monocytes Percent Auto 5.5 % (2-11); Neutrophils Absolute Auto 6.8 x10*3/uL (2.0-8.3); Neutrophils Percent Auto 64.4 % (45-73); Platelet Count 351 X10*3/uL (160-400); Red Blood Count 4.63 X10*6/uL (4.20-5.50); Red Cell Distribution Width 14.9 % (11.0-16.0); Retic HGB Equivalent 27.8 pg (30.0-35.0); Reticulocytes Absolute 0.094 X10*6/uL (0.026-0.095); White Blood Count 10.6 X10*3/uL (4.8-10.8)
[2023-08-20 14:07] LABS: Alkaline Phosphatase 168 U/L (39-117); Iron 21 mcg/dL (30-160); Percent Iron Saturation 7 % (15-50); Total Iron Binding Capacity 323 mcg/dL (228-428); Unsaturated Iron Binding 302 ug/dL
[2023-08-20 14:26] LABS: Ferritin 54 ng/mL (10-122)
[2023-08-20 14:32] LABS: Folate 8.4 ng/mL (> or = 4.0); Vitamin B12 353 pg/mL (200-900)
== END 2023-08-20 11:54 | disposition home or self-care (01) ==
LOC: HO.HHCL 11:53
PROVIDERS: Visit Provider Nurse Practitioner
DX: R74.8 Abnormal levels of other serum enzymes (principal); D64.9 Anemia, unspecified
CPT/HCPCS: 36415; 82607; 82728; 82746; 83540; 84075; 85025; 85045

== ENCOUNTER 2024-08-02 08:42 | Outpatient (REF) | payer MEDICAID, SELFPAY ==
--- OUTSIDE RECORDS SUMMARY | 2024-08-02 08:59 | XMS_ITS | Encounter Summary ---
Author Organization [employer] Address [address] [facility] [address] [place] [address] Care Team Providers Care Person Investigator Name Role Phone Renee Johnson NP Primary Care Provider [phone] Oleg Monzon RN Unavailable [phone] Reason for Visit * Reason Onset Date Comments Lab Orders 07/28/2024 Pt requesting tb test for work Encounter Details Date Type Department Care Team ([facility] st Contact Info) Description 07/28/[address] [facility] MEDICINE [address] [place], [place] [phone] Renee Johnson NP [address] [place], [place] [phone] Lab Orders (Pt requesting tb test for work ) Social History Tobacco Use Types Packs/Day Years Used Date Smoking Tobacco: Never Smokeless Tobacco: Never Alcohol Use Standard Drinks/Week Comments Never 0 (1 standard drink = 0.6 oz pur e alcohol) Depression Answer Date Recorded Patient Health Questionnaire-9 Score 0 06/05/2024 Patient Health Questionnaire-9 Score 0 06/05/2024 Last PHQ-9: Questionnaire Data Not on file 0 06/05/2024 Housing Stability Answer Date Recorded What is your housing situation today? I have coy alanis 06/05/[address] you li ve. Do you have problems with any of the following? None of the above 06/05/2024 Food Insecurity Answer Date Recorded Within the past 12 months, y ou worried that your food would run out before you got money to buy more: Never True 06/05/2024 Within the past 12 months,th e food you bought just didn't last and you didn't have enough money to get more: Never True Transportation Answer Date Recorded In the past 12 months, has l ack of transportation kept you from medical appts, meetings, work or from getting things needed for daily living? No 06/05/2024 Utilities Answer Date Recorded In the past 12 months, has t he electric, gas, oil or water company threatened to shut off services in your home? No 06/05/2024 Depression Answer Date Recorded Patient Health Questionnaire-2 Score 0 06/05/2024 Internet Access Answer Date Recorded Internet Access Q1 Yes 06/05/2024 Internet Access Q2 Not on file 06/05/2024 Comments Unknown Sex and Gender Information Value Date Recorded Sex Assigned at Female 01/19/2022 10:20 AM EDT Legal Sex Female 10:20 AM EDT Gender Identity Female 01/19/2022 10:20 AM EDT Sexual Orientation Straight 01/19/2022 10 :20 AM EDT documented as of this encounter Miscellaneous Notes * Telephone Encounter - Sejal Camacho RN - 07/28/2024 1:10 PM EDT TC placed to pt to inform lab order placed for TB SPOT. Pt verbalized understanding and denies questions at this time. * Telephone Encounter - Margaux Ballesteros - 07/28/2024 12:42 PM EDT Pt requesting tb test for work documented in this encounter Plan of Treatment Upcoming Encounters Date Type Department Care Team (Late st Contact Info) Description 08/04/2024 1:30 PM EDT Office Visit [facility] MEDICINE [address] [place], [place] [phone] Carlee Arshad CNP [address] [place], [place] [phone] 09/11/2024 1:00 PM EDT Office Visit [facility] OPTOMETRY [address] [place], [place] [phone] Karo Green, OD [address] [place] [address] Scheduled Orders Name Type Priority Associated Diagnoses Orde r Schedule T-SPOT??.TB Lab Routine Screening-pulmonary TB Expected: 07/28/2024 (Approximate), Expires: 07/28/2025 documented as of this encounter Visit Diagnoses Diagnosis Screening-pulmonary TB- Primary Screening examination for pulmonary tuberculosis documented in this encounter Additional Health Concerns Assessment Noted Time PHQ-9 Depression Total Score: 0 06/06/19 25 10:30 AM EDT documented as of this encounter Care Teams Person Investigator Relationship Specialty Start Date End Date Renee Johnson NP [address] [place] [address] PCP - General Family Medicine 12/30/22 Oleg Monzon, JAYMIE [address] [place] [id number] Commercial Light Fixture AssemblerElectronics Engineering Professor 06/02/24 documented as of this encounter
--- OUTSIDE RECORDS SUMMARY | 2024-08-02 08:59 | XMS_ITS | Encounter Summary ---
Author Organization [employer] Address [address] [facility] [address] [place] [address] Care Team Providers Care Residential Real Estate Agent Name Role Phone Renee Johnson NP Primary Care Provider [phone] Oleg Monzon RN Unavailable [phone] Reason for Visit * Reason Onset Date Comments Nurse Triage 05/19/2023 [facility] Cancelled Appt 05/19/2023 Patient trujillo d to cancel appt pt requesting new appt Encounter Details Date Type Department Care Team (Late st Contact Info) Description 05/19/2023 Telephone [facility] MEDICINE [address] [place], [place] [phone] Renee Johnson NP [address] [place], [place] [phone] Nurse Triage; [facility] Cancelled Appt (Patient called to cancel appt pt requesting new appt ) Social History Tobacco Use Types Packs/Day Years Used Date Smoking Tobacco: Never Smokeless Tobacco: Never Alcohol Use Standard Drinks/Week Comments Never 0 (1 standard drink = 0.6 oz pur e alcohol) Housing Stability Answer Date Recorded What is your housing situation today? I have coy alanis 01/13/[address] you li ve. Do you have problems with any of the following? None of the above 01/13/2023 Food Insecurity Answer Date Recorded Within the past 12 months, y ou worried that your food would run out before you got money to buy more: Never True 01/13/2023 Within the past 12 months,th e food you bought just didn't last and you didn't have enough money to get more: Never True Transportation Answer Date Recorded In the past 12 months, has l ack of transportation kept you from medical appts, meetings, work or from getting things needed for daily living? No 01/13/2023 Utilities Answer Date Recorded In the past 12 months, has t he electric, gas, oil or water company threatened to shut off services in your home? No 01/13/2023 Depression Answer Date Recorded Patient Health Questionnaire-2 Score 0 12/29/2022 Comments Unknown Sex and Gender Information Value Date Recorded Sex Assigned at Female 01/19/2022 10:20 AM EDT Legal Sex Female 10:20 AM EDT Gender Identity Female 01/19/2022 10:20 AM EDT Sexual Orientation Straight 01/19/2022 10 :20 AM EDT documented as of this encounter Miscellaneous Notes * Telephone Encounter - Margaux Ballesteros - 05/21/2023 10:32 AM EST Patient called to cancel appt pt requesting new appt * Telephone Encounter - Eloisa Mead RN - 05/19/2023 8:56 AM EST Triage call Pt reports since child in August/2022 has been having heavier periods. Pt reports tubal ligation at that time. Pt reports using 5 pads per day that are soaked and cramping as well as low back pain is present. Pt does report a vaginal discharge of brownish color prior to menses. Apt with PCP today at 1115am. Insurance is verified as active prior to booking. Pt agrees with disposition and home care reviewed. Protocol Used: Abdominal Pain - Menstrual Cramps (Adult) Protocol-Based Disposition: See in Office or Video Visit Today Video visit not offered Positive Triage Questions: * Unusual vaginal discharge before period began * Patient wants to be seen * All higher-acuity triage questions were negative Care Advice Discussed: * Reassurance and Education - Menstrual Cramps * General Health Tips * Use Heat * Pain Medicines for Menstrual Cramps * Pain Medicines - Extra Notes and Warnings * Reasons To Call Back - Severe pain and not better after taking ibuprofen or naproxen - Menstrual cramps cause you to miss work, school, or other important activities - Menstrual cramps last over 3 days - You become worse * Telephone Encounter - Sonal Claribel - 05/19/2023 8:40 AM EST Symptom: heavy Menstrual Periods Outcome: Schedule an appointment to be seen within 24 hours Reason: This is the only possible outcome for this symptom The caller accepted this outcome documented in this encounter Plan of Treatment Upcoming Encounters Date Type Department Care Team (Late st Contact Info) Description 08/04/2024 1:30 PM EDT Office Visit [facility] MEDICINE [address] [place] [address] Carlee Arshad CNP [address] [place] [address] 09/11/2024 1:00 PM EDT Office Visit [facility] OPTOMETRY [address] [place] [address] Karo Green, OD [address] [place] [address] documented as of this encounter Visit Diagnoses Not on filedocumented in this encounter Care Teams Residential Real Estate Agent Relationship Specialty Start Date End Date Renee Johnson NP [address] [place] [address] PCP - General Family Medicine 12/30/22 Oleg Monzon RN [address] [place] [id number] Contract WriterGarage Laborer 06/02/24 documented as of this encounter
--- OUTSIDE RECORDS SUMMARY | 2024-08-02 08:59 | XMS_ITS | Encounter Summary ---
Author Organization [employer] Address [address] [facility] [address] [place] [address] Care Team Providers Care Corporate Statistical Financial Analyst Name Role Phone Carmelina DixonP Primary Care Provider [phone] Renee Johnson NP Primary Care Provider [phone] Oleg Monzon RN Unavailable [phone] Reason for Visit * Reason Onset Date Comments Nurse Triage 09/15/2022 Encounter Details Date Type Department Care Team (Late st Contact Info) Description 09/15/2022 Telephone [facility] MEDICINE [address] [place] [address] Carmelina Dixon FNP [address] [place] [address] [place] [address] Nurse Triage Social History Tobacco Use Types Packs/Day Years Used Date Smoking Tobacco: Never Smokeless Tobacco: Never Alcohol Use Standard Drinks/Week Comments Never 0 (1 standard drink = 0.6 oz pur e alcohol) Comments Unknown Sex and Gender Information Value Date Recorded Sex Assigned at Female 01/19/2022 10:20 AM EDT Legal Sex Female 10:20 AM EDT Gender Identity Female 01/19/2022 10:20 AM EDT Sexual Orientation Straight 01/19/2022 10 :20 AM EDT COVID-19 Exposure Response Date Recorded In the last 10 days, have yo u been in contact with someone who was confirmed or suspected to have Coronavirus/COVID-19? No / Unsure 09/15/2022 4:21 PM EDT documented as of this encounter Miscellaneous Notes * Telephone Encounter - Eloisa Mead RN - 09/15/2022 2:51 PM EDT Triage call Pt reports sore throat, body aches, cough and headache, nasal congestion. Pt reports this started last night, neg for fever, difficulty breathing, earache. Advised to come to [facility] Pt agreed. Protocol Used: Sore Throat (Adult) Protocol-Based Disposition: See in Office or Video Visit Today Video visit not offered Positive Triage Questions: * Severe sore throat pain * Patient wants to be seen * All higher-acuity triage questions were negative Care Advice Discussed: * For Relief of Sore Throat Pain * Pain and Fever Medicines * Soft Diet * Drink Plenty of Liquids * Reasons To Call Back - Sore throat is the main symptom and it lasts longer than 48 hours - Sore throat is mild but lasts longer than 4 days - Fever lasts longer than 3 days - You become worse * Telephone Encounter - Krista Villafana - 09/15/2022 2:13 PM EDT Pt 2 of 2 Symptoms: Sore Throat, Body Aches, Cough, Headache Outcome: Schedule a same-day appointment or talk to a nurse or provider today Reason: Caller denied all higher acuity questions The caller accepted this outcome documented in this encounter Plan of Treatment Upcoming Encounters Date Type Department Care Team (Late st Contact Info) Description 08/04/2024 1:30 PM EDT Office Visit [facility] MEDICINE [address] [place] [address] Carlee Arshad CNP [address] [place] [address] 09/11/2024 1:00 PM EDT Office Visit [facility] OPTOMETRY [address] [place] [address] Karo Green, OD [address] [place] [address] documented as of this encounter Visit Diagnoses Not on filedocumented in this encounter Care Teams Corporate Statistical Financial Analyst Relationship Specialty Start Date End Date Carmelina Dixon FNP PCP - General Family Medicine 08/05/21 12/29/22 Renee Johnson NP [address] [place] [address] PCP - General Family Medicine 12/30/22 Oleg Monzon RN [address] [place] [phone] Travel Accommodations RaterEfficiency Expert 06/02/24 documented as of this encounter
--- OUTSIDE RECORDS SUMMARY | 2024-08-02 08:59 | XMS_ITS | Clinical Summary ---
Author Organization [employer] Address [address] [facility] 7t [place] [address] Care Team Providers Care Founder Chairman And Chief Creative Officer Name Role Phone Renee Johnson NP Primary Care Provider [phone] Oleg Monzon RN Unavailable [phone] Allergies Active Allergy Reactions Criticality Noted Date Comments Flavoring Agent (Non-Screening) 12/20 Medications EPINEPHrine (Epipen) 0.3 MG/0.3ML injection syringeIndicatio ns:Anaphylaxis, sequela Inject 0.3 mL (0.3 mg) as directed 1 (one) time if needed for anaphylaxis for up to 1 dose. Inject into upper leg. Call 911 after use. 1 each 1 4 Active Additional Information Patient not taking.Reported on 06/02/2023 tacrolimus (Protopic) 0.03 % ointmentIndicati ons:Other eczema Apply topically to the affected area twice daily. 60 g 1 4 Active clobetasol (Temovate) 0.05 % ointmentIndicati ons:Other eczema Apply topically to bilateral hands two times daily 60 g 2 4 Active triamcinolone (Kenalog) 0.1 % ointmentIndicati ons:Eczema, unspecified type Apply topically if needed in the morning and at bedtime for rash. 80 g 1 5 Active Active Problems Problem Noted Date Diagnosed Date H/O gastric sleeve 06/05/2024 Overview (06/05/2024): Robotic assisted sleeve gastrectomy at [facility] with Dr. Perdue and Dr. 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 Assessment & Plan (06/02/2023 9:27 AM EDT): -patient with shrimp allergy -epipen rx provided for emergency use with exposure to allergen Candidiasis 06/02/2023 Assessment & Plan (06/02/2023 5:51 PM EDT): -likely fungal rash to under arms and bra line -advised to keep dry the area completely after shower -rx for nystain powder sent to pharmacy -Follow-up 1 month Dermatitis 06/02/2023 Assessment & Plan (06/02/2023 5:55 PM EDT): -presentation consistent with eczema -trial topical steroid application -avoid exposure to fragrances, harsh soaps, chemicals and detergents -maintain adequate skin moisture -wash hands with luke warm water and avoid extreme hot or cold temperatures -follow-up 1 month STI (sexually transmitted infection) 06/02/2023 Assessment & Plan (06/02/2023 5:51 PM EDT): -patient agreeable to testing -labs ordered Anemia 06/02/2023 Assessment & Plan (10/19/2023 11:14 PM EDT): -mild anemia noted on CBC. Pt is asymptomatic -likely iron deficiency secondary to heavy menses -will start ferrous gluconate with vitamin C supplementation every other day -repeat labs ordered today to evaluate for anemia type -will contact with lab results Assessment & Plan (06/02/2023 5:53 PM EDT): -reports heavy menses -will eval for iron deficiency Abnormal uterine bleeding (AUB) 06/02/2023 Assessment & Plan (10/19/2023 11:03 PM EDT): -stable at this time per patient -advised to trial motrin 800 mg every day a few days before and for duration of menses if symptoms present again -will consider norethindrone to control bleeding if it becomes bothersome for the patient -US without significant finding except for small benign left ovarian cyst -follow-up as needed Assessment & Plan (06/02/2023 5:44 PM EDT): -sureswab completed to test for STI/ infection -labs ordered to eval for presence of anemia or thyroid dysfunction as cause of AUB -Pelvic and transvaginal ultrasound ordered to rule out structural causes -if negative testing, will engage in shared decision making with patient in consideration for endometrium biopsy -may complete work up for PCOS pending previously ordered metabolic lab results -will further discuss weight loss at follow-up appointment Encounter for preventive health examination 12/20 Assessment & Plan (12/29/2022 10:10 AM EDT): Discussed with patient re increase fresh fruit and vegetable intake. Counseled re moderate exercise as tolerated, up to 20min/d Patient feels safe at home. Pap smear reportedly up to date, will obtain records. Next one due 2024 Eye exam more than 5 yrs ago, will refer Lipids/FBS, BMP 11/2022 within nil limits, order IZ titers Vaccinations PNA IZ today, counseled to get Covid booster, will obtain MMR and Hep B titers, all other IZ are up to date Dental visit up to date, next one due Apr 2023 Eczema 12/18/2022 Assessment & Plan (06/05/2024 9:54 AM EDT): -rx'ed triamciolone topical oint for acute flare -advised use of tacrolimus for maintenance -monitor for foods/products that cause flares/irritation -follow-up 6 months or sooner as needed Assessment & Plan (06/02/2023 5:36 PM EDT): -use clobetasol ointment as needed for acute flare, no more than 1 week -will trial protopic ointment for daily use -keep skin moisturized -advised avoidance of fragrances, harsh soap, chemical, detergents Obesity 07/12/2012 Assessment & Plan (06/05/2024 10:01 AM EDT): -immediate post-op weight 130 kg per discharge notes; clinic weight today 124 kg -congratulated on initiating journey to wellness -reviewed diet and exercise recommendations, stressing that she follow timeline recommended by surgeons Assessment & Plan (06/02/2023 5:57 PM EDT): -Healthy diet and exercise teaching completed: Eat a variety of fruit and vegetables, whole grains such as whole-wheat flour, bulgur (cracked wheat), oatmeal, and brown rice. Intake protein from beans, nuts, fish, and lean meats. Eat low-fat or fat- free dairy products. Limit highly processed foods such as hot dogs, sandwich meat, etc. Engage in minimum of 150 min of moderate intensity exercise weekly -metabolic labs ordered to be completed fasting -will discuss weight loss options at next visit Assessment & Plan (12/29/2022 10:09 AM EDT): Discussed re weight reduction options including exercise, life style modifications, diet, referral to management specialist. Discussed re lower calorie intake, increase dietary fiber Encounters Date Type Department Care Team Description 07/28/[address] [address] Renee Johnson NP Lab Orders (Pt requesting tb test for work ) 07/28/[address] [address] Renee Johnson NP Care Management (C3CM- f/u call) 07/17/2024 Patient Outreach [address] [address] Renee Johnson NP Care Coordination (SDOH) 07/17/[address] [address] Renee Johnson NP Care Management (C3CM- f/u call) 07/03/2024 Patient Outreach [address] [address] Renee Johnson NP Care Coordination (SDOH f/u) 07/03/[address] [address] Renee Johnson NP Care Management (C3CM- f/u call) 06/19/[address] [address] Renee Johnson NP Care Management (C3CM- f/u call) 06/19/2024 Patient Outreach [address] [address] Renee Johnson NP Care Coordination (SDOH f/u) 06/05/2024 9:30 AM EDT Office Visit [address] [address] Renee Johnson NP Hospital discharge follow-up (Primary Dx); H/O gastric sleeve; Dietary counseling; Exercise counseling; Eczema, unspecified type; Routine adult health maintenance; Class 3 severe obesity due to excess calories without serious comorbidity with body mass index (BMI) of 50.0 to 59.9 in adult (CMS/HCC) 06/05/2024 Travel 06/02/[address] [address] Renee Johnson NP Care Management (C3- initial assessment/ enrollment) 06/02/2024 Population Health Risk Score [facility] () Department [address] [place] [phone] Provider, Population Health Generic 05/31/[address] [address] Suzi Bee [place] chartprep 05/22/2024 Patient Outreach [facility] [address] [place], [place] [phone] Renee Johnson NP Transition Of Care (Tcm) (HDF scheduled. ) 05/18/2024 Patient Outreach [address] [address] Renee Johnson NP Care Coordination (CM/CHW outreach) 05/18/[address] [address] Renee Johnson QUALITY ASSURANCE CLERK Care Management (C3CM- chart review) from Last 3 Months Immunizations Immunization Administration Dates Next Due DTaP 03/26/1999, 7,1995,08/01,1995 HPV, Quadrivalent 07/12/2012,02/16/2011,03/26/19 10 Hep B, Adolescent or Pediatric 1995,1995,1995 Hep B, adult 03/02/2024,09/29/2023,08/20/2023 Hib (HbOC) 08/08/1996, 6,1995,05/17 IPV 03/26/1999,1995,1995 Influenza injectable quadriv alent IIV4 with preservative 02/10/2017 Influenza injectable quadriv alent preservative free 12/29/2022,01/13/2019,01/30/2015 Influenza, IIV3, injectable 04/24/2022,0 06/16/2018,02/07/2014,02/16,03/26/2009 Influenza, Split (incl. alfredo fied surface antigen) 01/20/2013 Influenza, seasonal, injecta ble, preservative free 04/24/2022 MMR 08/08/1996,04/14/1996 Meningococcal MCV4P ACYW-135 08/06/2021,03/26/19 10 Pfizer Covid-19 Vaccine 12+ 05/13/2021 Pfizer Covid-19 Vaccine 12+ jason-sucrose (Gould Cap) 11/03/2021 Pfizer Covid-19 Vaccine 5-11 06/03/2021 Tdap 06/18/2022,10/07/2018,11/22/2007 Varicella 08/06/2021,02/24/2011 Social History Tobacco Use Types Packs/Day Years Used Date Smoking Tobacco: Never Smokeless Tobacco: Never Tobacco Cessation:Counseling Given: Not Answered Alcohol Use Standard Drinks/Week Comments Never 0 [...] Orientation Straight 01/19/2022 10 :20 AM EDT Last Filed Vital Signs Vital Sign Reading Time Taken Comments Blood Pressure 131/71 06/05/2024 9:23 AM EDT Pulse 72 06/05/2024 9:23 AM EDT Temperature 36.9 ??C (98.5 ??F) 06/05/2024 9:23 AM ED T Respiratory Rate 18 06/05/2024 9:23 AM EDT Oxygen Saturation 99% 06/05/2024 9:23 AM EDT Inhaled Oxygen Concentration - - Weight 124 kg (274 lb 3.2 oz) 06/05/2024 9:23 AM EDT Height 157.5 cm (5' 2 ) 06/05/2024 9:23 AM EDT Body Mass Index 50.15 06/05/2024 9:23 AM EDT Plan of Treatment Upcoming Encounters Date Type Department Care Team (Late st Contact Info) Description 08/04/2024 1:30 PM EDT Office Visit [facility] [address] [place] [address] Carlee Arshad CNP [address] [place] [address] 09/11/2024 1:00 PM EDT Office Visit [facility] OPTOM[facility]RY [address] [place], [place] [phone] Norma Karo, OD [address] [place], [place] [phone] Health Maintenance Due Date Last Done Comments Alcohol/Substance Use Screening 2007 Family Planning (PISQ) 2010 Pneumococcal Vaccine: Pediatrics (0 to 5 Years) and At-Risk Patients (6 to 49) Years) (1 of 2 - PCV) 2014 COVID-19 Vaccine (3 - season) 2023 11/03/2021, 06/03/2021, 05/13/2021 Influenza Vaccine (#1) 2023 , 04/24/2022, 04/24/2022, Additional history exists Depression Screening 06/05/2025 06/05/2024, 06/06/19 SDOH Screening 06/05/2025 06/05/2024 Tobacco Screening 06/05/2025 06/05/2024 Pap Smear 02/26/2027 02/26/2022 Lipid Panel 06/27/2028 06/28/2023 DTaP/Tdap/Td Vaccines (9 - Td or Tdap) 06/18/2032 06/18/2022, 10/07/2018, 11/22/2007, Additional history exists Zoster Vaccines (1 of 2) 2045 RSV Patients and Patients Aged 60 years or older (1 - 1-dose 75+ series) 2070 HIB Vaccines Completed 08/08/1996, 09/20, 1995, Additional history exists IPV Vaccines Completed 03/26/1999, 07/20, 1995 HPV Vaccines Completed 07/12/2012, 01/21, 03/26/2009 Meningococcal Vaccine Aged Out 08/06/2021, 010 No longer eligible based on patient's age to complete this topic HIV Screening Completed 06/28/2023 Hepatitis C Screening Completed 06/28/2023, 023 Hepatitis B Vaccines Completed 03/02/2024, 09/29/2023, 08/20/2023, Additional history exists Hepatitis A Vaccines Aged Out No long er eligible based on patient's age to complete this topic Meningococcal B Vaccine Aged Out No l onger eligible based on patient's age to complete this topic RSV under 20 months Aged Out No longe r eligible based on patient's age to complete this topic Rotavirus Vaccines Aged Out No longer eligible based on patient's age to complete this topic Procedures Procedure Name Priority Date/Time Associated Diagnosis Comments HEPATITIS C AB W/REFL TO HCV RNA, QN, PCR Routine 06/28/2023 8:51 AM EDT STI (sexually transmitted infection) HIV 1/2 ANTIGEN/ANTIBODY, FOURTH GENERATION W/RFL Routine 06/28/2023 8:51 AM EDT STI (sexually transmitted infection) LIPID PANEL, STANDARD Routine 06/28/2023 8:51 AM EDT Class 3 severe obesity due to excess calories without serious comorbidity with body mass index (BMI) of 45.0 to 49.9 in adult (CMS/HCC) HM PAP/HPV Routine 02/26/2022 9:35 AM EST from Last 3 Months or Most Recently Relevant to Health Maintenance Results * Hepatitis C Antibody with Reflex to HCV, RNA, Quantitative, Real-Time PCR (06/28/2023 8:51 AM EDT) Hepatitis C Antibody Nonreactive Nonreactive [facility] Comment:Antibodies to HCV no t detected; does not exclude early acuteHCV infection. Blood Venous blood specimen / Unknown 06/28/2023 8:51 AM EDT 06/28/2023 11:44 AM EDT Renee Greenberg QUALITY ASSURANCE CLERK LAB BLOOD ORDERABLES Final Resu lt Performing Organization Address City/[facility]/ZIP Co de Phone Number [facility] [address] [place] [phone] * HIV-1/2 Antigen and Antibodies, Fourth Generation, with Reflexes (06/28/2023 8:51 AM EDT) HIV AB/AG Nonreactive Nonreactive [facility] Comment:HIV-1 p24 Ag and/or HIV-1/HIV-2 Ab not detected.A test result that is nonreactive does not exclude thepossibility of exposure to or infection with HIV-1 and/orHIV-2. Nonreactive results in this assay for individualswith prior exposure to HIV-1 and/or HIV-2 may be due toantigen and antibody levels that are below the limit ofdetection of this assay.The [employer] HIV Ag/Ab Combo assay result andsupplemental assay results should be interpreted inconjunction with the patient's clinical presentation,history and other laboratory results. If the results areinconsistent with clinical evidence, additional testing issuggested to confirm the result. Blood Venous blood specimen / Unknown 06/28/2023 8:51 AM EDT 06/28/2023 11:44 AM EDT Renee Greenberg QUALITY ASSURANCE CLERK LAB BLOOD ORDERABLES Final Resu lt Performing Organization Address [facility]/ZIP Co de Phone Number [facility] [address] [place] [phone] * (ABNORMAL) Lipid Panel, Standard (06/28/2023 8:51 AM EDT) Triglycerides 146 <150 mg/dL [facility] Comment:Desirable Triglyceri de: less than 150 mg/dLBorderline High Triglyceride 150-199 mg/dLHigh Triglyceride: 200-499 mg/dLVery High Triglyceride: greater than or equal to 5OO mg/dL Cholesterol 146 <200 mg/dL [facility] Comment:Desirable Cholestero l: less than 200 mg/dLBorderline High Cholesterol: 200-239 mg/dLHigh Cholesterol: greater than 239 mg/dL LDL Cholesterol Calculated 78 <100 mg/dL [facility] Comment:Desirable LDL: less than 100 mg/dLNear Optimal/Above Optimal LDL: 110- 129 mg/dLBorderline High LDL: 130-159 mg/dLHigh LDL: 160-189 mg/dLVery High LDL: greater than or equal to 190 mg/dL HDL Cholesterol 39(L) >40 mg/dL [facility] Comment:Desirable HDL: great er than 40 mg/dL Note: This HDL assay may give artificially low results in patients with liver disease. Blood Venous blood specimen / Unknown 06/28/2023 8:51 AM EDT 06/28/2023 11:44 AM EDT Renee Johnson QUALITY ASSURANCE CLERK LAB BLOOD ORDERABLES Final Resu lt [facility] [address] [place] [phone] * HM PAP/HPV (02/26/2022 9:35 AM EST) Historical Provider HEALTH MAINTENANCE Final Result from Last 3 Months or Most Recently Relevant to Health Maintenance Insurance [id number] [employer] [address] [address] [facility] C3 Care Teams Founder Chairman And Chief Creative Officer Relationship Specialty Start Date End Date Renee Johnson NP [address] [place] [phone] PCP - General Family Medicine 12/30/22 Oleg Monzon RN [address] [place] [phone] Farmer And GrazierChauffeur 06/02/24
--- OUTSIDE RECORDS SUMMARY | 2024-08-02 08:59 | XMS_ITS | Encounter Summary ---
Author Organization [employer] Address [address] [facility] 7t [place] [address] Care Team Providers Care Grant Officer Name Role Phone Renee Johnson NP Primary Care Provider [phone] Oleg Monzon RN Unavailable [phone] Reason for Visit * Reason Onset Date Comments Care Management 07/28/2024 C3CM- f/u call Encounter Details Date Type Department Care Team ([facility] st Contact Info) Description 07/28/2024 Telephone [facility] [address] [place] [address] Renee Johnson NP [address] [place] [address] Care Management (C3CM- f/u call) Social History Tobacco Use Types Packs/Day Years [...] encounter Miscellaneous Notes * Telephone Encounter - Oleg Monzon RN - 07/28/2024 9:44 AM EDT AMY Monzon RN placed outbound call to patient. Patient's name, and address confirmed. Patient states is doing well with no recent illnesses or emergency room visits. Patient states she missed her f/u appt with Bariatrics. She states the visit was rescheduled to August. Per patient, doing well physically and emotionally. She states she has been doing well post op. She reports resuming a regular diet and states she is no longer drinking protein shakes. Patient aware of her upcoming physical appt on 08/04 and denies any barriers to attending the visit. She denies any SDOH needs and states she has no questions or concerns at this time. No further questions or concerns. CM reinforced direct contact information for any additional questions or concerns. Education provided on Walk-In Urgent Care located in [facility] of [facility]. Patient provided with after-hours line for [facility], , which offer night time triage service and option to transfer to airport tower controller provider if needed. Patient verbalizes understanding, and able to r epeat back to card writer hand. A follow up call will be placed within 10 days, patient agrees with plan. documented in this encounter Plan of Treatment Upcoming Encounters Date Type Department Care Team (Late st Contact Info) Description 08/04/2024 1:30 PM EDT Office Visit [facility] [address] [place] [address] Carlee Arshad, PRODUCTION LINE SOLDERER [address] [place] [address] 09/11/2024 1:00 PM EDT Office Visit [facility] OPTOMETRY [address] [place] [address] TarKaro leary, OD [address] [place] [address] documented as of this encounter Visit Diagnoses Not on filedocumented in this encounter Additional Health Concerns Assessment Noted Time PHQ-9 Depression Total Score: 0 06/06/19 10:30 AM EDT documented as of this encounter Care Teams Grant Officer Relationship Specialty Start Date End Date Renee Johnson NP [address] [place] [address] PCP - General Family Medicine 12/30/22 Oleg Monzon RN [address] [place] [phone] Reel SlitterClinical Application Manager 06/02/24 documented as of this encounter
--- OUTSIDE RECORDS SUMMARY | 2024-08-02 08:59 | XMS_ITS | Encounter Summary ---
Author Organization [employer] Address [address] [facility] [place] [address] Care Team Providers Care Tile Molder Name Role Phone Renee Johnson NP Primary Care Provider [phone] Oleg Monzon RN Unavailable [phone] Encounter Details Date Type Department Care Team (Late st Contact Info) Description 01/06/2024 Orders Only [facility] [address] [place], [place] [phone] Provider, MD Cara Social History Tobacco Use Types Packs/Day Years [...] AM EDT documented as of this encounter Plan of Treatment Upcoming Encounters Date Type Department Care Team (Late st Contact Info) Description 08/04/2024 1:30 PM EDT Office Visit [facility] [address] [place] [address] Carlee Arshad, GEAR REPAIRER [address] [place] [address] 09/11/2024 1:00 PM EDT Office Visit [facility] OPTOMETRY [address] [place] [address] Karo Green, OD [address] [place] [address] documented as of this encounter Procedures Procedure Name Priority Date/Time Associated Diagnosis Comments HM PAP/HPV Routine 02/26/2022 9:35 AM EST documented in this encounter Results * HM PAP/HPV (02/26/2022 9:35 AM EST) Historical Provider HEALTH MAINTENANCE Final Result documented in this encounter Visit Diagnoses Not on filedocumented in this encounter Care Teams Tile Molder Relationship Specialty Start Date End Date Renee Johnson NP [address] [place] [address] PCP - General Family Medicine 12/30/22 Oleg Monzon RN [address] [place] [address] Community Relations LiaisonCircular Knife Machine Cutter 06/02/24 documented as of this encounter
[2024-08-07 00:49] LABS: TS Negative Control Passed; TS Panel A 0; TS Panel B 0; TS Positive Control Passed; TSpotTB Negative (Negative)
== END 2024-08-02 08:43 | disposition home or self-care (01) ==
LOC: HO.HHCL 08:42
PROVIDERS: Visit Provider Nurse Practitioner
DX: Z11.1 Encounter for screening for respiratory tuberculosis (principal)
CPT/HCPCS: 36415; 86481

== ENCOUNTER 2024-12-18 14:19 | Outpatient (REF) | payer MEDICAID, SELFPAY ==
--- OUTSIDE RECORDS SUMMARY | 2024-12-18 13:45 | XMS_ITS | Encounter Summary ---
Author Organization [employer] Address [address] [facility] [address]t [place] [address] Care Team Providers Care Sheet Cutter Name Role Phone Renee Johnson NP Primary Care Provider [phone] Reason for Referral * Imaging (Routine) - Pending Review Specialty Diagnoses / Procedures Referred By Reno jones Referred To Contact Radiology Diagnoses Breast pain, left Procedures BI US Breast Complete Left Renee Johnson NP [address] [place] [address] Phone: tel: fax: Referral ID Status Reason Start Date Expiration Date V isits Requested Visits Authorized [id number] Pending Review 12/18/2024 12/18/2025 1 1 Encounter Details Date Type Department Care Team (Late st Contact Info) Description 12/18/2024 1:45 PM EDT Office Visit [facility] MED[facility] [address] [place], [place] [phone] Renee Johnson NP [address] [place], [place] [phone] Breast pain, left (Primary Dx); Anemia, unspecified type; Elevated alkaline phosphatase level; Anaphylaxis, sequela Social History Tobacco Use Types Packs/Day Years [...] AM EDT documented as of this encounter Last Filed Vital Signs Vital Sign Reading Time Taken Comments Blood Pressure 110/76 12/18/2024 1:40 PM EDT Pulse 96 12/18/2024 1:40 PM EDT Temperature 36.2 C (97.1 F) 12/18/2024 1:40 PM EDT Respiratory Rate 20 12/18/2024 1:40 PM EDT Oxygen Saturation 97% 12/18/2024 1:40 PM EDT Inhaled Oxygen Concentration - - Weight 110 kg (241 lb 9.6 oz) 12/18/2024 1:40 PM EDT Height - - Body Mass Index 44.19 06/05/2024 9:23 AM EDT documented in this encounter Plan of Treatment Scheduled Orders Name Type Priority Associated Diagnoses Orde r Schedule BI US Breast Complete Left Imaging Routine Breast pain, left Expected: 12/18/2024, Expires: 12/18/2025 Hepatic Function Panel Lab Routine Elevated alkaline phosphatase level Expected: 12/18/2024 (Approximate), Expires: 12/18/2025 CBC auto differential Lab Routine Anemia, unspecified type Expected: 12/18/2024 (Approximate), Expires: 12/18/2025 Iron And Total Iron Binding Capacity Lab Routine Anemia, unspecified type Expected: 12/18/2024, Expires: 12/18/2025 documented as of this encounter Visit Diagnoses Diagnosis Breast pain, left- Primary Anemia, unspecified type Elevated alkaline phosphatase level Anaphylaxis, sequela documented in this encounter Additional Health Concerns Assessment Noted Time PHQ-9 Depression Total Score: 0 06/06/19 25 10:30 AM EDT documented as of this encounter Care Teams Sheet Cutter Relationship Specialty Start Date End Date Renee Johnson NP [address] [place] [phone] PCP - General Family Medicine 12/30/22 documented as of this encounter
--- OUTSIDE RECORDS SUMMARY | 2024-12-18 16:08 | XMS_ITS | Encounter Summary ---
Author Organization [employer] Address [address] [facility] 7t [place] [address] Care Team Providers Care Senior Games Technician Name Role Phone Renee Johnson NP Primary Care Provider [phone] Oleg Monzon RN Unavailable [phone] Reason for Visit * Reason Onset Date Comments Nurse Triage 05/19/2023 [facility] Cancelled Appt 05/19/2023 Patient trujillo d to cancel appt pt requesting new appt Encounter Details Date Type Department Care Team (Late st Contact Info) Description 05/19/2023 Telephone [facility] MEDICINE [address] [place], [place] [phone] Renee Johnson NP [address] [place], [place] [phone] Nurse Triage; [facility] Cancelled Appt (Patient called [...] become worse * Telephone Encounter - Sonal Sanford - 05/19/2023 8:40 AM EST Symptom: heavy Menstrual Periods Outcome: Schedule an appointment to be seen within 24 hours Reason: This is the only possible outcome for this symptom The caller accepted this outcome documented in this encounter Plan of Treatment Not on file documented as of this encounter Visit Diagnoses Not on filedocumented in this encounter Care Teams Senior Games Technician Relationship Specialty Start Date End Date Renee Johnson NP [address] [place] [id number] PCP - General Family Medicine 12/30/22 Oleg Monzon RN [address] [place] [address] Data Communications Software ConsultantLpn Home Health 06/02/24 08/27/24 documented as of this encounter
--- OUTSIDE RECORDS SUMMARY | 2024-12-18 16:08 | XMS_ITS | Encounter Summary ---
Author Organization [employer] Address [address] [facility] 7t [place] [address] Care Team Providers Care Supervisor Pressing Department Name Role Phone Carmelina Dixon TUB OPERATOR Primary Care Provider Cecilia vailaRenee Holt SUPPLIER DEVELOPMENT MANAGER Primary Care Provider [phone] Oleg Monzon RN Unavailable [phone] Reason for Visit * Reason Onset Date Comments Nurse Triage 09/15/2022 Encounter Details Date Type Department Care Team (Late st Contact Info) Description 09/15/2022 Telephone [facility] MEDICINE [address] [place] [address] Carmelina Dixon FNP Nurse Triage Social History Tobacco Use Types [...] difficulty breathing, earache. Advised to come to [facility] Pt agreed. Protocol Used: Sore Throat (Adult) [...] on filedocumented in this encounter Care Teams Supervisor Pressing Department Relationship Specialty Start Date End Date Carmelina Dixon FNP PCP - General Family Medicine 08/05/21 12/29/22 Renee Johnson NP [address] [place] [address] PCP - General Family Medicine 12/30/22 Oleg Monzon RN [address] [place] [phone] Bareback RiderVp Integration 06/02/24 08/27/24 documented as of this encounter
--- OUTSIDE RECORDS SUMMARY | 2024-12-18 16:08 | XMS_ITS | Encounter Summary ---
Author Organization [employer] Address [address] [facility] [address] 7[address] [place] [address] Care Team Providers Care Watch Technician Name Role Phone Renee Johnson NP Primary Care Provider [phone] Oleg Monzon RN Unavailable [phone] Encounter Details Date Type Department Care Team (Late st Contact Info) Description 01/06/2024 Orders Only [facility] MEDICINE [address] [place], [place] [phone] Provider, MD Cara Social History Tobacco Use [...] as of this encounter Plan of Treatment Not on file documented as of this encounter Procedures Procedure Name Priority Date/Time Associated Diagnosis Comments HM PAP/HPV Routine 02/26/2022 9:35 AM EST documented in this encounter Results * HM PAP/HPV (02/26/2022 9:35 AM EST) us Historical Provider HEALTH MAINTENANCE Final Result documented in this encounter Visit Diagnoses Not on filedocumented in this encounter Care Teams Watch Technician Relationship Specialty Start Date End Date Renee Johnson NP [address] [place] [address] PCP - General Family Medicine 12/30/22 Oleg Monzon RN [address] [place] [address] Metal Sponge Making Machine OperatorHousekeeping/Laundry Supervisor 06/02/24 08/27/24 documented as of this encounter
--- OUTSIDE RECORDS SUMMARY | 2024-12-18 16:08 | XMS_ITS | Encounter Summary ---
Author Organization [employer] Address [address] [facility] 7t [place] [address] Care Team Providers Care Mobile Engineer Name Role Phone Renee Johnson NP Primary Care Provider [phone] Reason for Visit * Reason Onset Date Comments CHARTPREP 12/15/2024 Encounter Details Date Type Department Care Team ([facility] st Contact Info) Description 12/15/[address] [facility] MEDICINE [address] [place] [address] Renee Johnson NP [address] [place] [address] CHARTPREP Social History Tobacco Use Types Packs/Day Years [...] encounter Miscellaneous Notes * Telephone Encounter - Suzi Bee [place] - 12/15/2024 11:00 AM EDT Chart Prep Labs: done Images: done Referrals: complete Vaccines due: Covid, Flu, and PCV20 Screenings: not applicable Overdue care gaps: SBIRT, Oral health screening, and Disability screen documented in this encounter Plan of Treatment Not on file documented as of this encounter Visit Diagnoses Not on filedocumented in this encounter Additional Health Concerns Assessment Noted Time PHQ-9 Depression Total Score: 0 06/06/19 25 10:30 AM EDT documented as of this encounter Care Teams Mobile Engineer Relationship Specialty Start Date End Date Renee Johnson NP [address] [place] [address] PCP - General Family Medicine 12/30/22 documented as of this encounter
--- OUTSIDE RECORDS SUMMARY | 2024-12-18 16:08 | XMS_ITS | Clinical Summary ---
Author Organization [employer] Address [address] [facility] 7t [place] [address] Care Team Providers Care Officer Lieutenant Name Role Phone Renee Johnson EMERALD Primary Care Provider [phone] Allergies Active Allergy Reactions Criticality Noted Date Comments Flavoring Agent (Non-Screening) 12/20 Medications tacrolimus (Protopic) 0.03 % ointmentIndica tions:Other eczema Apply topically to the affected area twice daily. 60 g 1 06/02/19 24 Active clobetasol (Temovate) 0.05 % ointmentIndica tions:Other eczema Apply topically to bilateral hands two times daily 60 g 2 06/02/19 24 Active triamcinolone (Kenalog) 0.1 % ointmentIndica tions:Eczema, unspecified type Apply topically if needed in the morning and at bedtime for rash. 80 g 1 06/06/19 25 Active EPINEPHrine (Epipen) 0.3 MG/0.3ML injection syringeIndicat ions:Anaphylax is, sequela Inject 0.3 mL (0.3 mg) as directed 1 (one) time if needed for anaphylaxis for up to 2 doses. Inject into upper leg. Call 911 after use. 1 each 1 12/19/19 25 Active ferrous gluconate (Fergon) 324 (38 Fe) MG tabletIndicati ons:Anemia, unspecified type Take 1 tablet (324 mg) by mouth every other day. 15 tablet 2 12/19/19 25 025 Active Ascorbic Acid (vitamin C) 250 MG tabletIndicati ons:Anemia, unspecified type Take 1 tablet (250 mg) by mouth every other day. 15 tablet 3 12/19/19 25 026 Active EPINEPHrine (Epipen) 0.3 MG/0.3ML injection syringeIndicat ions:Anaphylax is, sequela Inject 0.3 mL (0.3 mg) as directed 1 (one) time if needed for anaphylaxis for up to 1 dose. Inject into upper leg. Call 911 after use. 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 Perdue and Dr. 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 Discussed re lower calorie intake, increase dietary fiber Encounters Date Type Department Care Team Description 12/18/2024 1:45 PM EDT Office Visit [facility] MEDICINE [address] [place] [phone] Renee Johnson NP Breast pain, left (Primary Dx); Anemia, unspecified type; Elevated alkaline phosphatase level; Anaphylaxis, sequela 12/18/2024 Travel 12/15/2024 Telephone [facility] [address] [place] [address] Renee Johnson NP CHARTPREP 12/08/2024 Patient Outreach [facility] [address] [place], [place] [phone] Renee Johnson NP Pre-visit Planning ([facility] unable to reach, disconnected) 10/30/2024 Telephone [facility] [address] [place] [address] Renee Johnson NP Tami recall 09/18/2024 Telephone [facility] [address] [place] [address] Alicja Garcia MD from Last 3 Months Immunizations Immunization Administration [...] 9.6 oz) 12/18/2024 1:40 PM EDT Height 157.5 cm (5' 2 ) 06/05/2024 9:23 AM EDT Body Mass Index 44.19 06/05/2024 9:23 AM EDT Plan of Treatment Health Maintenance Due Date Last Done Comments Family Planning (PISQ) 2010 Pneumococcal Vaccine: Pediatrics (0 to 5 Years) and At-Risk Patients (6 to 49) Years (1 of 2 - PCV) 2014 COVID-19 Vaccine ( season) 2024 11/03/2021, 06/03/2021, 05/13/2021 Influenza Vaccine (#1) 2024 , 04/24/2022, 04/24/2022, Additional history exists Depression Screening 06/05/2025 06/05/2024, 06/06/19 SDOH Screening 06/05/2025 06/05/2024 Alcohol/Substance Use Screening 12/18/2025 12/18/2024 Disability Screening 12/18/2025 12/18/2024 Tobacco Screening 12/18/2025 12/18/2024 Pap Smear 02/26/2027 02/26/2022 Lipid Panel 06/27/2028 [...] (BMI) of 45.0 to 49.9 in adult ([facility]) HM PAP/HPV Routine 02/26/2022 9:35 AM EST from Last 3 Months or Most Recently Relevant to Health Maintenance Results * Hepatitis C Antibody with Reflex to HCV, RNA, Quantitative, Real-Time PCR (06/28/2023 8:51 AM EDT) Pathologist [facility] Hepatitis C Antibody Nonreactive Nonreactive [facility] Comment:Antibodies to HCV no t detected; does not exclude early acuteHCV infection. Blood Venous blood specimen / Unknown 06/28/2023 8:51 AM EDT 06/28/2023 11:[address] [facility] Final Resu lt [facility] [address] [place] [address] [phone] * HIV-1/2 Antigen and Antibodies, Fourth Generation, with Reflexes (06/28/2023 8:51 AM EDT) Pathologist [facility] HIV AB/AG Nonreactive Nonreactive [facility] Comment:HIV-1 p24 Ag and/or HIV-1/HIV-2 Ab not detected.A test result that is nonreactive does not exclude thepossibility of exposure to or infection with HIV-1 and/orHIV-2. Nonreactive results in this assay for individualswith prior exposure to HIV-1 and/or HIV-2 may be due toantigen and antibody levels that are below the limit ofdetection of this assay.The [employer] HIV Ag/Ab Combo assay result andsupplemental assay results should be interpreted inconjunction with the patient's clinical presentation,history and other laboratory results. If the results areinconsistent with clinical evidence, additional testing issuggested to confirm the result. Blood Venous blood specimen / Unknown 06/28/2023 8:51 AM EDT 06/28/2023 11:[address] [facility] [employer] GEOGRAPHY PROFESSOR LAB BLOOD ORDERABLES Final Resu lt [facility] [address] [place] [address] [phone] * (ABNORMAL) Lipid Panel, Standard (06/28/2023 8:51 AM EDT) Triglycerides 146 <150 mg/dL [facility] Comment:Desirable Triglyceri de: less than 150 mg/dLBorderline High Triglyceride 150-199 mg/dLHigh Triglyceride: 200-499 mg/dLVery High Triglyceride: greater than or equal to 5OO mg/dL Cholesterol 146 <200 mg/dL [facility] Comment:Desirable Cholestero l: less than 200 mg/dLBorderline High Cholesterol: 200-239 mg/dLHigh Cholesterol: greater than 239 mg/dL LDL Cholesterol Calculated 78 <100 mg/dL [facility] Comment:Desirable LDL: less than 100 mg/dLNear Optimal/Above Optimal LDL: 110- 129 mg/dLBorderline High LDL: 130-159 mg/dLHigh LDL: 160-189 mg/dLVery High LDL: greater than or equal to 190 mg/dL HDL Cholesterol 39(L) >40 mg/dL [facility] Comment:Desirable HDL: great er than 40 mg/dL Note: This HDL assay may give artificially low results in patients with liver disease. Blood Venous blood specimen / Unknown 06/28/2023 8:51 AM EDT 06/28/2023 11:44 AM EDT Renee Johnson GEOGRAPHY PROFESSOR LAB BLOOD ORDERABLES Final Resu lt [facility] [address] [place] [address] [phone] * HM PAP/HPV (02/26/2022 9:35 AM EST) Historical Provider HEALTH MAINTENANCE Final Result from Last 3 Months or Most Recently Relevant to Health Maintenance Insurance * Guarantor: Bala Bowser Account Type Relation to Patient Date of Phone Billing Address Personal/Family Self [address] [address] [facility] C3 Care Teams Officer Lieutenant Relationship Specialty Start Date End Date Renee Johnson NP [address] [place] [phone] PCP - General Family Medicine 12/30/22
--- OUTSIDE RECORDS SUMMARY | 2024-12-18 16:08 | XMS_ITS | Encounter Summary ---
Demographics Address [address] [facility] [address] [place] [address] Mobile Phone Work Phone Preferred Language en Marital Status Single Moravian Affiliation Unknown Race White Ethnic Group Unknown Author Organization [employer] Address [address] [facility] [address] [place] [address] Care Team Providers Care Returning Officer Name Role Phone Renee Johnson EMERALD Primary Care Provider [phone] Encounter Details Date Type Department Care Team (Latest Contact Info) Description 12/18/2024 Travel Social History Tobacco Use Types Packs/Day Years [...] documented as of this encounter Care Teams Returning Officer Relationship Specialty Start Date End Date Renee Johnson NP [address] [place] [address] PCP - General Family Medicine 12/30/22 documented as of this encounter
[2024-12-18 16:10] LABS: MANUAL DIFF FLAG NO
[2024-12-18 16:26] LABS: Hematocrit 37.1 % (37.0-47.0); Hemoglobin 12.2 g/dl (12.0-16.0); Imm Gran Abs Auto 0.03 X10*3/uL (0.00-0.03); Imm Gran Pct Auto 0.3 % (0.0-0.4); Lymphocytes Absolute Auto 3.0 X10*3/uL (1.2-4.9); Mean Corpuscular HGB Conc 32.9 g/dl (31.0-35.0); Mean Corpuscular Hemoglobin 27.9 pg (27.0-33.0); Mean Corpuscular Volume 84.7 fL (80.0-98.0); NRBC Abs Auto 0.000 X10*3/uL (0.0-0.012); NRBC Pct Auto 0.0 /100WBC (0.0-0.2); Platelet Count 339 X10*3/uL (160-400); Red Blood Count 4.38 X10*6/uL (4.20-5.50); White Blood Count 11.1 X10*3/uL (4.8-10.8)
[2024-12-18 16:52] LABS: Alanine Aminotransferase 19 U/L (0-31); Albumin Level 4.2 g/dL (3.5-5.0); Alkaline Phosphatase 133 U/L (39-117); Aspartate Amino Transferase 22 U/L (5-31); Iron 32 mcg/dL (30-160); Percent Iron Saturation 11 % (15-50); Total Iron Binding Capacity 298 mcg/dL (228-428); Total Protein 7.5 g/dL (6.5-8.0); Unsaturated Iron Binding 266 ug/dL
== END 2024-12-18 14:20 | disposition home or self-care (01) ==
LOC: HO.HHCL 14:19
PROVIDERS: PCP Nurse Practitioner; Visit Provider Nurse Practitioner
DX: R74.8 Abnormal levels of other serum enzymes (principal); D64.9 Anemia, unspecified
CPT/HCPCS: 36415; 80076; 83540; 85025